=== PATIENT | female | born 1975 | race Hispanic/Latino ===

== ENCOUNTER 2020-07-12 11:24 | Emergency (ER) | payer MEDICARE, MEDICAID ==
[~2020-07-12] VITALS: Ht 172.7 cm; Wt 131.5 kg
[~2020-07-12 11:24] MED LIST: AMLO5TAB10 PO; ARIP2TAB3 PO; CELE200C PO; CHLO25TA PO; CLOP75TA PO; ESCI20TA PO; POT1TABL2 PO; TRAZ-163 PO
[2020-07-12 12:01] VITALS: BP 146/88
--- NOTE | 2020-07-12 12:35 | ER.PDOC ---
General Chief Complaint: Requesting Medical Care Stated Complaint: SOB Time seen by MD: 12:33 Source: patient Exam Limitations: no limitations History of Present Illness Initial Comments SOB for 1 Month, no fever, cough or chest pain. No exposure to a person positive for COVID-19. She drove a friesn to the ED and decided to get checked. She continues to smoke. Severity: mild Prior Episodes/Possible Cause: no prior episodes Associated Symptoms: denies symptoms Allergies: Coded Allergies: No Known Allergies (Unverified , 09/10/13) Home Meds Reported Medications Clopidogrel Bisulfate (CLOPIDOGREL) 75 Mg Tablet, 75 MG PO DAILY, TABLET 05/07/14 Trazodone Hcl (TRAZODONE HCL) 50 Mg Tablet, 50 MG PO HS, TABLET 05/07/14 Chlorthalidone (CHLORTHALIDONE) 25 Mg Tablet, 25 MG PO DAILY, TABLET 05/07/14 Amlodipine Besylate (AMLODIPINE BESYLATE) 5 Mg Tablet, 5 MG PO BID, TABLET 05/07/14 Celecoxib (CELEBREX) 200 Mg Capsule, 200 MG PO DAILY, CAPSULE 05/07/14 Escitalopram Oxalate (ESCITALOPRAM OXALATE) 20 Mg Tablet, 20 MG PO DAILY, #1 TABLET 05/07/14 Aripiprazole (ABILIFY) 2 Mg Tablet, 2 MG PO HS, TABLET 05/07/14 Pot Chloride/Kush Phos/Mag (MEDI-LYTE TABLET) 1 Each Tablet, 1 EACH PO BID, TABLET 05/07/14 Past Medical History Medical History: CVA/TIA/stroke, hypertension Surgical History: other Social History Alcohol Use: none Drug Use: none Review of Systems Constitutional: no symptoms reported EENTM: no symptoms reported Respiratory: see HPI Cardiovascular: no symptoms reported Gastrointestinal: no symptoms reported Genitourinary: no symptoms reported All Other Systems: Reviewed and Negative Physical Exam General Appearance: No Apparent Distress, WD/WN, Anxious, Obese Neck: Non-Tender, Full Range of Motion, Supple, Normal Inspection Respiratory: chest non-tender, lungs clear, normal breath sounds, no respiratory distress, no accessory muscle use Cardiovascular: Normal Peripheral Pulses, Regular Rate, Rhythm, No Edema, No Gallop, No JVD, No Murmur Gastrointestinal: Normal Bowel Sounds, No Organomegaly, No Pulsatile Mass, Non Tender, Soft Extremities: Normal Range of Motion, Non-Tender, Normal Inspection, No Pedal Edema, No Calf Tenderness, Normal Capillary Refill 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, No Motor/Sensory Deficits, Alert, Normal Mood/Affect, Oriented x 3 Skin: Normal Color, Warm/Dry Results/Orders Results/Orders Orders - BRANDT ROBLERO MD Cbc With Auto Diff (07/12/20 12:31) Comprehensive Metabolic Panel (07/12/20 12:31) Creatine Kinase (07/12/20 12:31) Creatine Kinase Mb (07/12/20 12:31) Troponin I (07/12/20 12:31) Probnp B-Type Job Lithographer (07/12/20 12:31) Xr Chest 1v (07/12/20 12:31) Ekg-Routine (07/12/20 12:31) Vital Signs Date Time Temp Pulse Resp B/P (MAP) Pulse Ox O2 Delivery O2 Flow Rate FiO2 07/12/20 12:52 88 18 163/90 (114) 98 07/12/20 12:01 98.3 94 18 07/12/20 12:01 98.3 94 18 07/12/20 12:01 98.3 94 18 Laboratory Tests Test 07/12/20 12:42 White Blood Count 7.3 10^3/uL (4.5-11.0) Red Blood Count 5.27 10^6/uL (4.00-5.20) H Hemoglobin 16.6 g/dL (12.0-15.0) H Hematocrit 50.0 % (36.0-46.0) H Mean Corpuscular Volume 94.9 fL (78-100) Mean Corpuscular Hemoglobin 31.5 pg (26-34) Mean Corpuscular Hemoglobin Concent 33.2 g/dL (33-36.5) Red Cell Distribution Width 12.7 % (11.5-14.5) Platelet Count 212 10^3/uL (150-400) Mean Platelet Volume 9.7 fL (7.8-11.0) Neutrophils (%) (Auto) 67.3 % (41.0-85.0) Lymphocytes (%) (Auto) 22.5 % (24.0-44.0) L Monocytes (%) (Auto) 6.9 % (5.0-12.0) Neutrophils # (Auto) 4.9 10^3/uL (1.8-7.7) Lymphocytes # (Auto) 1.63 10^3/uL1 (1.0-4.8) Monocytes # (Auto) 0.5 10^3/uL (0.3-0.8) Absolute Immature Granulocyte (auto 0.03 10^3 u/L (0-2) Absolute Eosinophils (auto) 0.2 10^3/uL (0.0-0.2) Immature Granulocytes % 0.40 % (0.00-0.50) Eosinophils % 2.8 % (0.0-5.0) Basophils % 0.1 % (0.0-0.2) Basophils # 0.0 10^3/uL (0.0-0.1) Sodium Level 138 mmol/L (132-145) Potassium Level 4.0 mmol/L (3.6-5.2) Chloride Level 103.0 mmol/L (96-109) Carbon Dioxide Level 26.0 mmol/L (20.0-32) Anion Gap 13.0 Blood Urea Nitrogen 11 mg/dL (7-18) Creatinine 0.88 mg/dL (0.59-1.40) Estimated GFR () 84.1 (>/=60) Est GFR (CKD-EPI)(Non-Afr Uruguayan) 69.5 (>/=60) BUN/Creatinine Ratio 12.0 Glucose Level 170 mg/dL (70-110) H Calcium Level 8.8 mg/dL (8.4-10.5) Total Bilirubin 0.3 mg/dL (0.2-1.0) Aspartate Amino Transferase (AST) 34 U/L (0-35) Alanine Aminotransferase (ALT) 53 U/L (12-78) Alkaline Phosphatase 77 U/L (50-136) Total Creatine Kinase 53 U/L (26-192) Creatine Kinase MB < 0.5 ng/mL (0.5-3.6) L Troponin I < 0.02 ng/mL (0.00-0.05) Pro-B-Type Natriuretic Peptide 12 pg/mL (0-125) Total Protein 8.2 g/dL (6.4-8.2) Albumin 3.6 g/dL (3.4-5.0) Globulin 4.6 EKG/XRAY/CT/US EKG: NSR XRAY: chest (No active disease) Departure Time of Disposition: 13:23 Disposition: 01 HOME, SELF-CARE Impression: Primary Impression: Shortness of breath Additional Impression: Anxiety Condition: Stable Referrals: ARMAND GREENE (PCP) PRIMARY CARE PROVIDER Additional Instructions: F/U with your PCP in 1-2 days Return to ED if worsening symptoms or concerns Duration or Time Spent with Pa: 45 min Problem Qualifiers BRANDT ROBLERO MD Jul 12, 2020 12:35
--- NOTE | 2020-07-12 12:40 | PCM.EKG ---
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
[2020-07-12 12:49] LABS: BASOPHIL % 0.1 % (0.0-0.2); EOSINOPHIL # 0.2 10^3/uL (0.0-0.2); EOSINOPHIL % 2.8 % (0.0-5.0); LYMPHOCYTES # 1.63 10^3/uL1 (1.0-4.8); LYMPHOCYTES % 22.5 % (24.0-44.0); MEAN CORP HGB 31.5 pg (26-34); MONOCYTES # 0.5 10^3/uL (0.3-0.8); MONOCYTES % 6.9 % (5.0-12.0); NEUTROPHIL # 4.9 10^3/uL (1.8-7.7); NEUTROPHILS % 67.3 % (41.0-85.0); PLATELET COUNT 212 10^3/uL (150-400); RED CELL DISTRIBUTION WIDTH 12.7 % (11.5-14.5)
[2020-07-12 12:52] VITALS: BP 163/90
--- NOTE | 2020-07-12 12:55 | DIREP ---
PROCEDURE:CHEST 1 VIEW COMPARISON:None. INDICATIONS:Shortness of breath FINDINGS: LUNGS/PLEURA:No significant pulmonary parenchymal abnormalities. No effusions. VASCULATURE:Normal. Unremarkable pulmonary vasculature. CARDIAC:Normal. No cardiac silhouette abnormality or cardiomegaly. MEDIASTINUM:Normal. No visible mass or adenopathy. BONES:Mild degenerative change. OTHER:Negative. CONCLUSION:No acute pulmonary process. Dictated by: Michael Holt M.D. on 07/12/2020 at 12:50 PM
[2020-07-12 13:16] LABS: ALANINE AMINOTRANSFERASE(ML) 53 U/L (12-78); ALKALINE PHOSPHATASE 77 U/L (50-136); ASPARTATE AMINO TRANSFERASE 34 U/L (0-35); CALCIUM 8.8 mg/dL (8.4-10.5); GLUCOSE 170 mg/dL (70-110)
== END 2020-07-12 13:35 | disposition home or self-care (01) ==
LOC: ER 11:34
DX: R06.02 Shortness of breath (principal); F41.9 Anxiety disorder, unspecified; I10 Essential (primary) hypertension; Z79.1 Long term (current) use of non-steroidal anti-inflammatories (NSAID); Z79.899 Other long term (current) drug therapy; Z86.73 Personal history of transient ischemic attack (TIA), and cerebral infarction without residual deficits
CPT/HCPCS: 36415; 71045; 80053; 82550; 82553; 83880; 84484; 85025; 93005; 99285

== ENCOUNTER → 2020-11-15 | Outpatient (CLI) | payer MEDICARE, MEDICAID ==
[~2020-11-15] MED LIST changes: +AMLO-169 PO; -AMLO5TAB10 PO
--- NOTE | 2020-11-15 20:52 | PCM.ECHO ---
APPROVED REPORT EXAM: Comprehensive 2D, Doppler, and color-flow Echocardiogram. Patient Location: OUT-PATIENT Indications Dyspnea ALLEN 2D Dimensions LVOT Diameter 2.60 (1.8-2.4cm) LVEF(%) 56.85 (>50%) M-Mode Dimensions Left Atrium(MM) 4.55 (2.5-4.0cm) IVSd 1.50 (0.7-1.1cm) Aortic Root 3.05 (2.2-3.7cm) LVDd 8.35 (4.0-5.6cm) Aortic Cusp Exc 1.80 (1.5-2.0cm) PWd 1.10 (0.7-1.1cm) MV EPSS 2.87 (<0.5cm) IVSs 2.35 cm FS (%) 18.05 % LVDs 6.80 (2.0-3.8cm) ESV(Teich) 242.97 ml PWs 1.80 cm LVEF(%) 36.03 (>50%) Volumes Biplane 2D LV Volumes Biplane 2D LA Volumes LVEDv A4C 145.90 mL LA ESV Index LVESv A4C 62.96 mL Aortic Valve AoV Peak Josh. 1.50 m/s AoV VTI 26.45 cm AO Peak GR. 9.40 mmHg AO Mean GR. 5.55 mmHg LVOT VTI 16.60 cm LVOT Peak Josh. 0.77 m/s BRENDA(VTI)/BSA 3.33 cm2/m2 BRENDA (VTI) 3.33 cm2 Mitral Valve MV E Velocity 0.80m/s MR Peak Gr. 12.45mmHg MV A Velocity 0.75m/s TDI Lateral E' P. V 0.09m/s Medial E' P. V 0.07m/s Pulmonary Valve PV Peak Velocity 0.75m/s PV Peak Grad. 2.25mmHg RVOT VTI 16.92cm Tricuspid Valve TR P. Velocity 2.50m/s RAP ESTIMATE 10.00mmHg TR Peak Gr. 25.63mmHg RVSP 35.63mmHg LEFT VENTRICLE The left ventricle is normal size. The left ventricular systolic function is normal. The left ventricular ejection fraction is within the normal range. There is normal left ventricular wall thickness. There is normal LV segmental wall motion. There is no ventricular septal defect visualized. No left ventricle thrombus noted on this study. LVEF is 55%. RIGHT VENTRICLE The right ventricle is normal size. The right ventricular systolic function is normal. There is normal right ventricular wall thickness. ATRIA The left atrium size is normal. The right atrium size is normal. The interatrial septum is intact with no evidence for an atrial septal defect. AORTIC VALVE The aortic valve is normal in structure. There is no aortic valvular stenosis. No aortic regurgitation is present. MITRAL VALVE The mitral valve is normal in structure. There is no mitral valve stenosis. Mild to moderate mitral regurgitation. There is no evidence of mitral valve vegetations. TRICUSPID VALVE Tricuspid valve is not well visualized. There is no tricuspid valve stenosis. Mild tricuspid regurgitation. PULMONIC VALVE Pulmonic valve is not well visualized. There is no pulmonic valvular stenosis. There is no pulmonic valvular regurgitation. GREAT VESSELS The aortic root is normal in size. Pulmonary artery is not well visualized. Aortic arch is not well visualized. IVC is not well visualized. PERICARDIUM There is no pericardial effusion. There is no pleural effusion. Other Information Study Quality: Fair <Conclusion> The left ventricular systolic function is normal. LVEF is 55%. Mild to moderate mitral regurgitation. Mild tricuspid regurgitation. Electronically signed by : LIZANDRO ZHENG. 11/15/2020 20:51:39
== END | disposition home or self-care (01) ==
LOC: RT 16:03
PROVIDERS: ATTEND Physician Assistant
DX: I08.1 Rheumatic disorders of both mitral and tricuspid valves (principal); R06.00 Dyspnea, unspecified
CPT/HCPCS: 93306; 94010

== ENCOUNTER 2022-09-14 13:27 | Inpatient (IN) | payer OTHER ==
[~2022-09-14] VITALS: Ht 170.2 cm; Wt 129.7 kg
[~2022-09-14 13:27] MED LIST changes: -ESCI20TA PO; +ESCI20TA8 PO
[2022-09-14 13:29] VITALS: BP 129/78
--- NOTE | 2022-09-14 13:29 | NUR ---
ARRIVAL PATIENT ARRIVED TO ED5 [facility], C/O WEAKNESS AND ELEVATED BLOOD SUGAR FOR THE PAST 3 DAYS, DOES HAVE A HISTORY OF TREMORS AND THE TREMORS SEEM TO BE WORSE, CALLED [facility] TO BRING TO THE ED, EMS INITIATED A 20G TO THE LEFT HAND INFUSING NORMAL SALINE, ASSISTED PATIENT TO ED5 [place], VITAL SIGNS TAKEN AND DOCTOR NOTIFIED OF PATIENT'S ARRIVAL.
--- NOTE | 2022-09-14 13:31 | ER.PDOC ---
General Chief Complaint: Requesting Medical Care Stated Complaint: HIGH BLOOD SUGAR TRAVEL OUT OF US: No Time seen by MD: 13:30 Source: patient Exam Limitations: no limitations History of Present Illness Initial Comments 47 yo F indicates she has been feeling unwell for the past week or so. Her blood glucose monitor had been reading 'high' at home - FSBS from EMS who brought her here is 570~ on arrival - and had her machine checked by her pharmacy, who verified that it was accurate. Denies fever, chills, cough, sore throat, or dysuria. There is a new medication - Ingrezza - which she had been taking for chronic tremors for the past ~2 weeks or so. Timing/Duration: 1 week Associated Symptoms: malaise Allergies: Coded Allergies: No Known Allergies (Unverified , 09/10/13) Home Meds Reported Medications Propranolol Hcl (PROPRANOLOL HCL) 40 Mg Tablet, 1 TAB PO DAILY24, #60 TAB 5 Refills 09/14/22 Metformin Hcl (METFORMIN HCL) 500 Mg Tablet, 1 TAB PO DAILY24, #60 TAB 3 Refills 09/14/22 Lisinopril (LISINOPRIL) 5 Mg Tablet, 1 TAB PO DAILY, #30 TAB 5 Refills 09/14/22 Levothyroxine Sodium (LEVOTHYROXINE SODIUM) 100 Mcg Tablet, 1 TAB PO DAILY, #30 TAB 5 Refills 09/14/22 Benztropine Mesylate (BENZTROPINE MESYLATE) 1 Mg Tablet, 1 TAB PO TID, #60 TAB 09/14/22 Atorvastatin 40MG (LIPITOR 40MG) 40 Mg Tablet, 1 TAB PO HS, #90 TAB 1 Refill 09/14/22 Aspirin (ASPIRIN) 325 Mg Tablet, 1 TAB PO DAILY, #30 TAB 5 Refills 09/14/22 Valbenazine Tosylate (Ingrezza) 80 Mg Capsule, 1 CAP PO DAILY24 for 30 Days, #30 CAP 0 Refills 09/14/22 Chlorthalidone (CHLORTHALIDONE) 25 Mg Tablet, 25 MG PO DAILY, TABLET 05/07/14 Amlodipine Besylate (AMLODIPINE BESYLATE) 5 Mg Tablet, 5 MG PO BID, TABLET 05/07/14 Escitalopram Oxalate (ESCITALOPRAM OXALATE) 20 Mg Tablet, 20 MG PO DAILY, #1 TABLET 05/07/14 Discontinued Reported Medications Clopidogrel Bisulfate (CLOPIDOGREL) 75 Mg Tablet, 75 MG PO DAILY, TABLET 05/07/14 Trazodone Hcl (TRAZODONE HCL) 50 Mg Tablet, 50 MG PO HS, TABLET 05/07/14 Celecoxib (CELEBREX) 200 Mg Capsule, 200 MG PO DAILY, CAPSULE 05/07/14 Aripiprazole (ABILIFY) 2 Mg Tablet, 2 MG PO HS, TABLET 05/07/14 Pot Chloride/Kush Phos/Mag (MEDI-LYTE TABLET) 1 Each Tablet, 1 EACH PO BID, TABLET 05/07/14 Past Medical History Medical History: CVA/TIA/stroke, diabetes, hypertension Surgical History: other (has mirena) Family History Significant Family History: no pertinent family hx Social History Smoking: non-smoker Drug Use: none Reviewed Nursing Reviewed: Vital Signs, Abn. Noted, Nursing Assessment Review of Systems All Other Systems: Reviewed and Negative Physical Exam General Appearance: No Apparent Distress Neck: Non-Tender, Full Range of Motion Respiratory: chest non-tender, lungs clear CVS: reg rate & rhythm Gastrointestinal: Normal Bowel Sounds, Non Tender (limited somewhat by body habitus) Back: Normal Inspection Extremities: Normal Range of Motion 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: No Motor/Sensory Deficits Skin: Normal Color Results/Orders Results/Orders Orders - MIRNA KAYE MD Strep Screen (09/14/22 13:28) Influenza A&B (09/14/22 13:28) Covid19 Antigen [place] Deborah (09/14/22 13:28) Urinalysis (09/14/22 13:28) Cbc With Auto Diff (09/14/22 13:28) Comprehensive Metabolic Panel (09/14/22 13:28) Insulin Regular, Human (Humulin R) (09/14/22 13:44) Insulin Regular, Human (Humulin R) (09/14/22 13:50) 0.9 % Sodium Chloride (Ns 1000ml) (09/14/22 13:50) Admit Orders (09/14/22 14:19) Ceftriaxone Sodium (Rocephin) (09/14/22 14:22) Vital Signs Date Time Temp Pulse Resp B/P (MAP) Pulse Ox O2 Delivery O2 Flow Rate FiO2 09/14/22 13:29 98.3 74 20 129/78 (95) 96 Room Air* 0 21 09/14/22 13:29 98.3 74 20 09/14/22 13:29 98.3 74 20 96 Administered Medications Medications (Trade) Dose Ordered Sig/Nisreen Route PRN Reason Start Time Stop Time Status Last Admin Dose Admin Insulin Human Regular (Humulin R) 10 unit STAT STAT IV 09/14/22 13:44 09/14/22 13:46 DC 09/14/22 13:54 10 UNIT Sodium Chloride 1,000 ml @ 0 mls/hr Q0M STAT IV 09/14/22 13:50 09/14/22 13:51 UNV 09/14/22 14:07 1,200 MLS/HR Laboratory Tests Test 09/14/22 13:35 09/14/22 13:40 Urine Collection Type RANDOM Urine Color YELLOW Urine Appearance CLEAR Urine Bilirubin NEGATIVE (NEGATIVE) Urine Ketones NEGATIVE (NEGATIVE) Urine Specific [place] 1.020 (1.005-1.030) Urine pH 7.0 (4.5-8.0) Urine Protein NEGATIVE (NEGATIVE) Urine Urobilinogen 1.0 E.U./dL (0.2) Urine Nitrate NEGATIVE (NEGATIVE) Urine Leukocyte Esterase NEGATIVE (NEGATIVE) Urine Glucose (Auto)(UA) 500 mg/dL (NEGATIVE) H Urine Blood TRACE-INTACT (NEGATIVE) H White Blood Count 9.0 10^3/uL (4.5-11.0) Red Blood Count 5.13 10^6/uL (4.00-5.20) Hemoglobin 15.1 g/dL (12.0-15.0) H Hematocrit 46.7 % (36.0-46.0) H Mean Corpuscular Volume 91.0 fL (78-100) Mean Corpuscular Hemoglobin 29.4 pg (26-34) Mean Corpuscular Hemoglobin Concent 32.3 g/dL (33-36.5) L Red Cell Distribution Width 13.0 % (11.5-14.5) Platelet Count 194 10^3/uL (150-400) Mean Platelet Volume 10.7 fL (7.8-11.0) Neutrophils (%) (Auto) 68.5 % (41.0-85.0) Lymphocytes (%) (Auto) 22.8 % (24.0-44.0) L Monocytes (%) (Auto) 5.5 % (5.0-12.0) Neutrophils # (Auto) 6.2 10^3/uL (1.8-7.7) Lymphocytes # (Auto) 2.05 10^3/uL1 (1.0-4.8) Monocytes # (Auto) 0.5 10^3/uL (0.3-0.8) Absolute Immature Granulocyte (auto 0.02 10^3 u/L (0-2) Absolute Eosinophils (auto) 0.3 10^3/uL (0.0-0.2) H Immature Granulocytes % 0.20 % (0.00-0.50) Eosinophils % 2.8 % (0.0-5.0) Basophils % 0.2 % (0.0-0.2) Basophils # 0.0 10^3/uL (0.0-0.1) Sodium Level 134 mmol/L (132-145) Potassium Level 4.0 mmol/L (3.6-5.2) Chloride Level 98.0 mmol/L (96-109) Carbon Dioxide Level 31.4 mmol/L (20.0-32) Anion Gap 8.6 Blood Urea Nitrogen 14 mg/dL (7-18) Creatinine 1.02 mg/dL (0.59-1.40) Estimated GFR () 70.3 (>/=60) Est GFR (CKD-EPI)(Non-Afr Luxembourger) 58.1 (>/=60) BUN/Creatinine Ratio 13.0 Glucose Level 614 mg/dL (70-110) *H Calcium Level 9.0 mg/dL (8.4-10.5) Total Bilirubin 0.5 mg/dL (0.2-1.0) Aspartate Amino Transferase (AST) 35 U/L (0-35) Alanine Aminotransferase (ALT) 40 U/L (12-78) Alkaline Phosphatase 137 U/L (50-136) H Total Protein 7.1 g/dL (6.4-8.2) Albumin 3.3 g/dL (3.4-5.0) L Globulin 3.8 Albumin/Globulin Ratio 0.868 Influenza Type A Antigen NEGATIVE (NEG) Influenza Type B Antigen NEGATIVE (NEG) SARS-CoV-2 Antigen (Rapid) NEGATIVE (NEGATIVE) Group A Streptococcus Screen POSITIVE (NEGATIVE) A Progress Progress strep positive. Glucose is quite impressive. I have conferred with Dr. Klein; we will give ceftriaxone and admit. ER DEPART Departure Time of Disposition: 14:23 Disposition: 02 SHORT TERM HOSPITAL Impression: Primary Impression: Pharyngitis due to Streptococcus pyogenes Additional Impressions: Severe hyperglycemia due to diabetes mellitus Uncontrolled diabetes mellitus Condition: Stable Referrals: ARMAND GREENE (PCP) PRIMARY CARE PROVIDER Duration or Time Spent with Pa: 15 min Problem Qualifiers MIRNA KAYE MD Sep 14, 2022 13:31
[2022-09-14] MEDS ORDERED: ATOR40TA PO (13:39)
[2022-09-14] MEDS ORDERED: LISI5TAB18 PO (13:39)
[2022-09-14] MEDS ORDERED: PROP40TA PO (13:39)
[2022-09-14] MEDS ORDERED: ASPI325T14 PO (13:39)
[2022-09-14] MEDS ORDERED: VALB80CA PO (13:39)
[2022-09-14] MEDS ORDERED: METF500T17 PO (13:39)
[2022-09-14] MEDS ORDERED: BENZ1TAB5 PO (13:39)
[2022-09-14] MEDS ORDERED: LEVO100T5 PO (13:39)
--- NOTE | 2022-09-14 13:39 | NUR ---
EMS GLUCOSE EMS TOOK GLUCOSE JUST SPECTACLE TRUER WAS 574.
[2022-09-14] MEDS ORDERED: HUMULIN R IV STA (13:44)
[2022-09-14 13:47] LABS: BASOPHIL % 0.2 % (0.0-0.2); EOSINOPHIL # 0.3 10^3/uL (0.0-0.2); EOSINOPHIL % 2.8 % (0.0-5.0); LYMPHOCYTES # 2.05 10^3/uL1 (1.0-4.8); LYMPHOCYTES % 22.8 % (24.0-44.0); MEAN CORP HGB 29.4 pg (26-34); MONOCYTES # 0.5 10^3/uL (0.3-0.8); MONOCYTES % 5.5 % (5.0-12.0); NEUTROPHIL # 6.2 10^3/uL (1.8-7.7); NEUTROPHILS % 68.5 % (41.0-85.0); PLATELET COUNT 194 10^3/uL (150-400)
[2022-09-14] MEDS ORDERED: HUMULIN R ONE (13:50)
[2022-09-14] MEDS ORDERED: NS 1000ML 1,000 ML IV STA (13:50)
[2022-09-14] MEDS ORDERED: NS 1000ML 1,000 ML STA (13:50)
[2022-09-14 13:52] LABS: BILIRUBIN,URINE NEGATIVE (NEGATIVE)
--- NOTE | 2022-09-14 13:55 | NUR ---
CRITICAL LAB STREP POSITIVE, DOCTOR NOTIFIED.
[2022-09-14 14:08] LABS: CARBON DIOXIDE 31.4 mmol/L (20.0-32)
--- NOTE | 2022-09-14 14:11 | NUR ---
CRITICAL LAB NOTIFIED KAYE OF GLUCOSE 614
--- NOTE | 2022-09-14 14:16 | NUR ---
HOSPITALIST DR KAYE ON THE PHONE WITH DR GLEASON
[2022-09-14] MEDS ORDERED: ROCEPHIN 2,000 MG in NS 100ML 100 ML IV STA (14:22)
[2022-09-14] MEDS ORDERED: NS 100ML 100 ML IV ONE (14:26)
[2022-09-14] MEDS ORDERED: ROCEPHIN ONE (14:26)
--- NOTE | 2022-09-14 14:51 | NUR ---
ARRIVAL PATIENT ARRIVED ON MED-SURG AT THIS TIME TO ROOM #330. REPORT RECEIVED BY MOUNIKA CULVER. VITAL SIGNS TAKEN, ACCUCHECK TAKEN AT THIS TIME. CALL LIGHT IN REACH, BED IS LOW AND LOCKED.
[2022-09-14] MEDS ORDERED: ZOFRAN IV PRN (15:00)
[2022-09-14] MEDS ORDERED: DEXTROSE 50%-WATER SYRINGE IV PRN (15:00)
[2022-09-14] MEDS ORDERED: MILK OF MAGNESIA PO PRN (15:00)
--- NOTE | 2022-09-14 15:02 | PCM.HP ---
HISTORY AND PHYSICAL Date of Arrival on Unit: Sep 14, 2022 Chief Complaint fatigue HPI 47 year old female presented to the ED today via EMS for fatigue and malaise. She has hx of DMII (on metformin and taking as prescribed) and reported her glucometer has been reading "HIGH" the past few days. In the ED she was found to have a glucose of 614. Sodium was 134, potassium 4.0, gap of 8. She was given 10 units humalog and 2 L bags of IVF. Repeat glucose was taken after I accepted the pt and it was 371. Positive glucose and few bacteria in urine. no leukocytosis but GAS was positive and pt noted a sore throat today. No fever or chills, GI sx, dyspnea, chest pain, palpitations, dysuria, abd pain, rash, numbness, weakness, headaches, ear pain, sinus pressure. She was given Rocephin 2g in the ED. Taking Metformin 1000mg, lisinopril 5mg, lipitor 40mg, propranolol 40mg, full ASA, amlodipine 5mg BID, ingrezza 80mg Past History Past Medical History Medical History: CVA/TIA/stroke, diabetes, hypertension Surgical History: other (has mirena) Family History Significant Family History: no pertinent family hx Social History Smoking: non-smoker Drug Use: none Allergies Allergies Coded Allergies No Known Allergies (Neqriwueak83/12/13) Scheduled Amlodipine Besylate (Amlodipine Besylate), 5 MG PO BID, (Reported) Aspirin (Aspirin), 1 TAB PO DAILY, (Reported) Atorvastatin 40MG (Lipitor 40MG), 1 TAB PO HS, (Reported) Benztropine Mesylate (Benztropine Mesylate), 1 TAB PO TID, (Reported) Chlorthalidone (Chlorthalidone), 25 MG PO DAILY, (Reported) Escitalopram Oxalate (Escitalopram Oxalate), 20 MG PO DAILY, (Reported) Levothyroxine Sodium (Levothyroxine Sodium), 1 TAB PO DAILY, (Reported) Lisinopril (Lisinopril), 1 TAB PO DAILY, (Reported) Metformin Hcl (Metformin Hcl), 1 TAB PO DAILY24, (Reported) Propranolol Hcl (Propranolol Hcl), 1 TAB PO DAILY24, (Reported) Valbenazine Tosylate (Ingrezza), 1 CAP PO DAILY24, (Reported) Discontinued Medications Aripiprazole (Abilify), 2 MG PO HS, (Reported) Discontinued Reason: No Longer Taking Celecoxib (Celebrex), 200 MG PO DAILY, (Reported) Discontinued Reason: No Longer Taking Clopidogrel Bisulfate (Clopidogrel), 75 MG PO DAILY, (Reported) Discontinued Reason: No Longer Taking Pot Chloride/Kush Phos/Mag (Medi-Lyte Tablet), 1 EACH PO BID, (Reported) Discontinued Reason: No Longer Taking Trazodone Hcl (Trazodone Hcl), 50 MG PO HS, (Reported) Discontinued Reason: No Longer Taking Other Pt history Problems Medical Problems: (1) Anxiety Status: Acute ICD Codes: F41.9 - Anxiety disorder, unspecified SNOMED: 49490280 (2) Shortness of breath Status: Acute ICD Codes: R06.02 - Shortness of breath SNOMED: 208103917 ROS 12 point ROS negative other than stated in HPI VITALS Vital Signs Date Time Temp Pulse Resp B/P (MAP) Pulse Ox O2 Delivery O2 Flow Rate FiO2 09/14/22 13:29 98.3 74 20 129/78 (95) 96 Room Air* 0 21 EXAM General Appearance: No Apparent Distress Neck: Non-Tender, Full Range of Motion Respiratory: chest non-tender, lungs clear CVS: reg rate & rhythm Gastrointestinal: Normal Bowel Sounds, Non Tender (limited somewhat by body habitus) Back: Normal Inspection Extremities: Normal Range of Motion 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: No Motor/Sensory Deficits Skin: Normal Color LAB/ROSANNA/BBK/PATH Laboratory Tests Test 09/14/22 13:35 09/14/22 13:40 09/14/22 14:39 09/14/22 14:54 Urine Collection Type RANDOM Urine Color YELLOW Urine Appearance CLEAR Urine Bilirubin NEGATIVE (NEGATIVE) Urine Ketones NEGATIVE (NEGATIVE) Urine Specific [place] 1.020 (1.005-1.030) Urine pH 7.0 (4.5-8.0) Urine Protein NEGATIVE (NEGATIVE) Urine Urobilinogen 1.0 E.U./dL (0.2) Urine Nitrate NEGATIVE (NEGATIVE) Urine Leukocyte Esterase NEGATIVE (NEGATIVE) Urine Glucose (Auto)(UA) 500 mg/dL (NEGATIVE) Urine Blood TRACE-INTACT (NEGATIVE) Urine RBC 0-2 RBC/HPF (NONE SEEN) Urine WBC 0-2 WBC/HPF (0-2) Urine Squamous Epithelial Cells FEW (<=FEW) Urine Bacteria FEW (NONE SEEN) White Blood Count 9.0 10^3/uL (4.5-11.0) Red Blood Count 5.13 10^6/uL (4.00-5.20) Hemoglobin 15.1 g/dL (12.0-15.0) Hematocrit 46.7 % (36.0-46.0) Mean Corpuscular Volume 91.0 fL (78-100) Mean Corpuscular Hemoglobin 29.4 pg (26-34) Mean Corpuscular Hemoglobin Concent 32.3 g/dL (33-36.5) Red Cell Distribution Width 13.0 % (11.5-14.5) Platelet Count 194 10^3/uL (150-400) Mean Platelet Volume 10.7 fL (7.8-11.0) Neutrophils (%) (Auto) 68.5 % (41.0-85.0) Lymphocytes (%) (Auto) 22.8 % (24.0-44.0) Monocytes (%) (Auto) 5.5 % (5.0-12.0) Neutrophils # (Auto) 6.2 10^3/uL (1.8-7.7) Lymphocytes # (Auto) 2.05 10^3/uL1 (1.0-4.8) Monocytes # (Auto) 0.5 10^3/uL (0.3-0.8) Absolute Immature Granulocyte (auto 0.02 10^3 u/L (0-2) Absolute Eosinophils (auto) 0.3 10^3/uL (0.0-0.2) Immature Granulocytes % 0.20 % (0.00-0.50) Eosinophils % 2.8 % (0.0-5.0) Basophils % 0.2 % (0.0-0.2) Basophils # 0.0 10^3/uL (0.0-0.1) Sodium Level 134 mmol/L (132-145) Potassium Level 4.0 mmol/L (3.6-5.2) Chloride Level 98.0 mmol/L (96-109) Carbon Dioxide Level 31.4 mmol/L (20.0-32) Anion Gap 8.6 Blood Urea Nitrogen 14 mg/dL (7-18) Creatinine 1.02 mg/dL (0.59-1.40) Estimated GFR () 70.3 (>/=60) Est GFR (CKD-EPI)(Non-Afr Malagasy) 58.1 (>/=60) BUN/Creatinine Ratio 13.0 Glucose Level 614 mg/dL (70-110) Calcium Level 9.0 mg/dL (8.4-10.5) Total Bilirubin 0.5 mg/dL (0.2-1.0) Aspartate Amino Transf (AST/SGOT) 35 U/L (0-35) Alanine Aminotransferase (ALT/SGPT) 40 U/L (12-78) Alkaline Phosphatase 137 U/L (50-136) Total Protein 7.1 g/dL (6.4-8.2) Albumin 3.3 g/dL (3.4-5.0) Globulin 3.8 Albumin/Globulin Ratio 0.868 Influenza Type A Antigen NEGATIVE (NEG) Influenza Type B Antigen NEGATIVE (NEG) SARS-CoV-2 Antigen (Rapid) NEGATIVE (NEGATIVE) Group A Streptococcus Screen POSITIVE (NEGATIVE) Bedside Glucose 371 (70 - 110) 390 (70 - 110) IMAGING none SUMMARY 47 year old female with DMII, HTN, CVA, hypothyroidism presented to the ED for malaise. She was found to have GAS pharyngitis and hyperglycemia with glucose 600. ASSESSMENT/PLAN Hyperglycemia - DMII on metformin, now - IVF and sliding scale. monitor glucose. A1c in morning HTN - amlodipine 5mg BID and propranolol 40mg as well as lisinopril 5mg. Hx of CVA - ASA, SCDs, Lovenox ppx, statin Depression - escitalopram and chlorthalidone Tremors - ?tardive dyskinesia - taking Ingrezza. GAS pharyngitis - rocephin given today, can switch to cephalexin or other oral abx tomorrow repeat BMP this evening cont IVF diabetic diet DVT and GI ppx antiemetics prn tylenol prn Rehydrate, monitor glucose and electrolytes. Likely be ready for discharge tomorrow. Has an establishment appointment with Dr Delvalle this week. MICHAEL GLEASON MD Sep 14, 2022 15:02
[2022-09-14] MEDS ORDERED: LACTATED RINGERS 1,000 ML ONE (15:29)
[2022-09-14 16:11] VITALS: BP 128/68
[2022-09-14] MEDS ORDERED: LOVENOX SQ SCH (16:30)
[2022-09-14] MEDS ORDERED: BENADRYL IV PRN (16:30)
[2022-09-14] MEDS: HUMULIN R SQ SCH ×2 (17:19→21:00)
[2022-09-14] MEDS: TYLENOL PO PRN (20:05)
[2022-09-14 20:06] VITALS: BP 151/77
[2022-09-14 20:38] LABS: CARBON DIOXIDE 25.6 mmol/L (20.0-32)
[2022-09-14] MEDS ORDERED: LIPITOR PO SCH (21:00)
[2022-09-14] MEDS: COGENTIN PO SCH (22:01)
[2022-09-15 00:36] VITALS: BP 135/78
[2022-09-15 04:00] VITALS: BP 149/84
[2022-09-15 05:11] LABS: BASOPHIL % 0.3 % (0.0-0.2); EOSINOPHIL # 0.3 10^3/uL (0.0-0.2); EOSINOPHIL % 4.4 % (0.0-5.0); LYMPHOCYTES % 32.3 % (24.0-44.0); MEAN CORP HGB 29.5 pg (26-34); MONOCYTES # 0.5 10^3/uL (0.3-0.8); MONOCYTES % 6.6 % (5.0-12.0); NEUTROPHIL # 4.4 10^3/uL (1.8-7.7); NEUTROPHILS % 56.4 % (41.0-85.0); PLATELET COUNT 190 10^3/uL (150-400); RED CELL DISTRIBUTION WIDTH 13.1 % (11.5-14.5)
[2022-09-15 05:20] LABS: CARBON DIOXIDE 29.7 mmol/L (20.0-32)
[2022-09-15] MEDS ORDERED: SYNTHROID PO SCH (06:30)
[2022-09-15] MEDS: TYLENOL PO PRN (07:02)
[2022-09-15 08:07] VITALS: BP 148/89
[2022-09-15] MEDS: COGENTIN PO SCH (08:20)
[2022-09-15] MEDS: HUMULIN R SQ SCH (08:23)
[2022-09-15] MEDS ORDERED: ZESTRIL PO SCH (09:00)
[2022-09-15] MEDS ORDERED: CHLORTHALIDONE PO SCH (09:00)
[2022-09-15] MEDS ORDERED: NORVASC PO SCH (09:00)
[2022-09-15] MEDS ORDERED: PROTONIX IV IV SCH (09:00)
[2022-09-15] MEDS ORDERED: INDERAL PO SCH (09:00)
[2022-09-15] MEDS ORDERED: CeleXA PO SCH (09:00)
[2022-09-15] MEDS ORDERED: ASPIRIN PO SCH (09:00)
[2022-09-15] MEDS ORDERED: GLIM4TAB PO (09:46)
[2022-09-15] MEDS ORDERED: METF500T17 PO (09:46)
--- NOTE | 2022-09-15 09:50 | PRM.DC ---
DISCHARGE SUMMARY Y Date of Admission: 09/14/2022 Date of Discharge:09/15/2022 FINAL DIAGNOSES: 1. Uncontrolled type 2 diabetes mellitus 2. Dehydration with malaise and fatigue 3. Hypertension 4. Hypothyroidism Please refer to the History and Physical to the point of my impression. HOSPITAL COURSE: 47-year-old female with uncontrolled type 2 diabetes mellitus who came in with a blood sugar that was very elevated and over 500. She was not in DKA and she was not in a hyperosmolar nonketotic state with no mental status changes. She was clinically dehydrated and was given insulin with IV fluids and her blood sugar started to come down. I educated her about a diabetic diet and since she is not on 1 and explained to her about carb counting and calories in her diet. Her blood sugars are improved at this time and she is not in an acidotic state and her renal function is normal. She is only taking metformin once a day and I explained to her that along with a proper diet and certain medications her blood sugars could be managed better down the road. I am increasing her metformin to twice a day and adding an oral sulfonylurea, Amaryl, at this time. She has an appointment to see Dr. Will one of our local breaker unit assembler to manage her diabetes down the road. Discharge instructions: 1. Stay on a 1500-calorie diet for now 2. Activity as tolerated 3. Perform Accu-Cheks before meals and at bedtime 4. Follow-up with Dr. Will as scheduled later this week ABRIL GOMEZ MD Sep 15, 2022 09:50
[2022-09-15 11:30] VITALS: BP 149/71
[2022-09-15 11:45] VITALS: BP 149/71
--- NOTE | 2022-09-15 11:45 | NUR ---
PT DISCHARGED VIA W/C ACCOMPANIED BY NURSING X1 TO PERSONAL VEHICLE WITH FAMILY
--- NOTE | 2022-09-15 13:00 | NUR ---
DISCHARGE PLAN -F/U APPT DR GLEASON - 09/18/22@2PM CM VISIT WITH PATIENT THIS AM ABOUT DISCHARGE PLANS, NEEDS AND GOALS. PATIENT CURRENTLY LIVES IN [place] WITH HER FIANCE, SON, AND DAUGHTER. PATIENT NO LONGER SEE'S DR GREENE IN [place]. PATIENT REPORTS THAT SHE IS SWITCHING TO [facility] AND PATIENT HAS A F/U SOMETIME NEXT WEEK. PATIENT SAYS THAT IT'S WRITTEN DOWN, BUT SHE FORGOT WHEN. PATIENT HAS [facility]HOME AND SOMETIMES USES. PATIENT EDUCATED ON SERVICES AVAILABLE. PATIENT ACTIVE AND STILL DRIVES AND DENIES NEED FOR ANY SERVICES OR DME. PATIENT SIGNS [facility] CHOICE LETTER OF SAME. CM CONTACTED [facility] AND PATIENT ACTUALLY HAS APPT SET UP WT DR GLEASON ON 09/18/22@2PM. CM NOTIFIED RODRIGO & ANGELICA@[facility] OF PATIENT'S DISCHARGE AND F/U APPT BY [facility] EMAIL.
== END 2022-09-15 11:45 | disposition home or self-care (01) | DRG 639 ==
LOC: EDBD 13:27 → ER 13:27 → MS 14:32
PROVIDERS: ADMIT Student in an Organized Health Care Education/Training Program; ATTEND Pediatrics
DX: E11.65 Type 2 diabetes mellitus with hyperglycemia (principal); I10 Essential (primary) hypertension; F32.A Depression, unspecified; G24.01 Drug induced subacute dyskinesia; J02.0 Streptococcal pharyngitis; E03.9 Hypothyroidism, unspecified; Z20.822 Contact with and (suspected) exposure to COVID-19; E86.0 Dehydration; F41.9 Anxiety disorder, unspecified; Z79.84 Long term (current) use of oral hypoglycemic drugs; Z79.899 Other long term (current) drug therapy; Z86.73 Personal history of transient ischemic attack (TIA), and cerebral infarction without residual deficits
CPT/HCPCS: 36415; 80048; 80053; 81001; 82948; 83036; 85025; 87086; 87426; 87804; 87880; 99285; C9113; G0378; J0696; J1650; J1815; J7030; J7120

== ENCOUNTER → 2022-09-22 | Outpatient (CLI) | payer OTHER ==
[~2022-09-22] MED LIST changes: +ASPI325T14 PO; +ATOR40TA PO; +BENZ1TAB5 PO; +GLIM4TAB PO; +LEVO100T5 PO; +LEXISCAN IV ONE; +LISI5TAB18 PO; +METF500T17 PO; +PROP40TA PO; +VALB80CA PO
--- NOTE | 2022-09-22 23:36 | STRESS ---
DATE OF SERVICE: 09/22/2022 DICTATOR NAME: LIZANDRO JOSEFeliz CARDIAC STRESS TEST INDICATION: Chest pain. FINDINGS: Baseline EKG shows sinus bradycardia with poor R-wave progression, likely normal variant. Stress EKG shows normal sinus rhythm, unchanged from baseline. Artifacts are noted during stress. At the end of recovery, EKG shows normal sinus rhythm, unchanged from baseline. Baseline heart rate is 54 beats per minute and armando to 62 beats per minute during stress. At the end of recovery, the heart rate was 79 beats per minute. Baseline blood pressure is 101/64 and remained the same during stress. At the end of recovery, the blood pressure was 159/68. Blood pressure and heart rate were appropriate for stress. There were no significant symptoms noted during stress. There were no arrhythmias noted during stress. EKG portion of stress test is negative for myocardial ischemia. Nuclear images were obtained with a rest dose of 9.9 mCi technetium-99 sestamibi, and a stress dose of 32.2 mCi technetium 99 sestamibi. Nuclear images reveal homogeneous tracer distribution across all wall segments with no evidence of myocardial ischemia or infarction. Left ventricular ejection fraction is 55%. EDV is 109 mL, ESV is 49 mL. The left ventricle is normal in size. Gated motion images show normal wall motion across all segments of the left ventricle. TID is 1.02. There is no evidence of diaphragmatic attenuation artifact. IMPRESSION: * Normal myocardial perfusion imaging with no evidence of myocardial ischemia or infarction. * Left ventricular ejection fraction of 55%. * This is a negative study. Jorge Luis PAEZ D.O. DR: BAILEE/SEBAS TID: [id number] RECEIPT: [id number]
== END | disposition home or self-care (01) ==
LOC: RAD 08:45
PROVIDERS: ATTEND Internal Medicine Interventional Cardiology
DX: I10 Essential (primary) hypertension (principal); R06.02 Shortness of breath; R07.9 Chest pain, unspecified
CPT/HCPCS: 78452; 93017; J2785; A9500

== ENCOUNTER → 2022-10-08 | Outpatient (CLI) | payer MEDICAID, MEDICARE, OTHER ==
[~2022-10-08] MED LIST changes: -LEXISCAN IV ONE
--- NOTE | 2022-10-09 03:20 | PRP ---
DATE OF PROCEDURE: 10/08/2022 DICTATOR NAME: LIZANDRO ZHENG DO VENOUS MAPPING ULTRASOUND INDICATION: Chronic venous insufficiency. RIGHT LOWER EXTREMITY: The right greater saphenous vein measures 7 mm in its maximum diameter. Significant reflux is noted in the right greater saphenous vein with maximum reflux of 6.1 seconds. The right small saphenous vein measures 4 mm in its maximum diameter. Significant reflux is noted in the right small saphenous vein with maximum reflux of 0.6 seconds. There is no evidence of deep venous thrombosis in the right lower extremity. LEFT LOWER EXTREMITY: The left greater saphenous vein measures 5 mm in its maximum diameter. Significant reflux is noted in the left greater saphenous vein with maximum reflux of 0.8 seconds. The left small saphenous vein measures 3 mm in its maximum diameter. There is no evidence of significant reflux in the left small saphenous vein. There is no evidence of DVT in the left lower extremity. IMPRESSION: * The right greater saphenous vein is normal sized, but displays pathological reflux. * The right small saphenous vein is normal sized, but displays pathological reflux. * The left greater saphenous vein is normal sized, but displays pathological reflux. * The left small saphenous vein is normal sized and does not show significant reflux. * There is no evidence of deep vein thrombosis in the bilateral lower extremities. RECOMMENDATIONS: Conservative measures including the use of compression stockings, leg elevation and exercise are recommended if clinically indicated. Jorge Luis PAEZ D.O. DR: FREDY TID: [id number] RECEIPT: [id number]
== END | disposition home or self-care (01) ==
LOC: RAD 14:43
PROVIDERS: ATTEND Nurse Practitioner Family
DX: I87.2 Venous insufficiency (chronic) (peripheral) (principal)
CPT/HCPCS: 93970

== ENCOUNTER 2022-10-09 10:57 | Emergency (ER) | payer MEDICARE, MEDICAID ==
[~2022-10-09] VITALS: Ht 170.2 cm; Wt 127.0 kg
[2022-10-09 10:59] VITALS: BP 127/63
--- NOTE | 2022-10-09 11:15 | ER.PDOC ---
General Chief Complaint: Dyspnea/Respdistress Stated Complaint: DYSPNEA TRAVEL OUT OF US: No Time seen by MD: 11:12 Source: patient Exam Limitations: no limitations History of Present Illness Initial Comments 47-year-old female comes here with acute onset of shortness of breath this morning. She is a heavy tobacco abuse review as she is in the process of being diagnosed now with congestive heart failure and COPD. The symptoms started at rest. No fever. Some dry cough. She does not take any diuretic. She is not taking any medication for COPD. She did not take anything medication for this at home. Symptoms are moderate to severe and progressive. Constant. Allergies: Coded Allergies: No Known Allergies (Unverified , 09/10/13) Home Meds Active Scripts Glimepiride (AMARYL) 4 Mg Tablet, 1 TAB PO BID, #60 TAB 3 Refills Prov:ABRIL GOMEZ MD 09/15/22 Metformin Hcl (METFORMIN HCL) 500 Mg Tablet, 1 TAB PO BID, #60 TAB 3 Refills Prov:ABRIL GOMEZ MD 09/15/22 Reported Medications Propranolol Hcl (PROPRANOLOL HCL) 40 Mg Tablet, 1 TAB PO DAILY24, #60 TAB 5 Refills 09/14/22 Lisinopril (LISINOPRIL) 5 Mg Tablet, 1 TAB PO DAILY, #30 TAB 5 Refills 09/14/22 Levothyroxine Sodium (LEVOTHYROXINE SODIUM) 100 Mcg Tablet, 1 TAB PO DAILY, #30 TAB 5 Refills 09/14/22 Benztropine Mesylate (BENZTROPINE MESYLATE) 1 Mg Tablet, 1 TAB PO TID, #60 TAB 09/14/22 Atorvastatin 40MG (LIPITOR 40MG) 40 Mg Tablet, 1 TAB PO HS, #90 TAB 1 Refill 09/14/22 Aspirin (ASPIRIN) 325 Mg Tablet, 1 TAB PO DAILY, #30 TAB 5 Refills 09/14/22 Valbenazine Tosylate (Ingrezza) 80 Mg Capsule, 1 CAP PO DAILY24 for 30 Days, #30 CAP 0 Refills 09/14/22 Chlorthalidone (CHLORTHALIDONE) 25 Mg Tablet, 25 MG PO DAILY, TABLET 05/07/14 Amlodipine Besylate (AMLODIPINE BESYLATE) 5 Mg Tablet, 5 MG PO BID, TABLET 05/07/14 Escitalopram Oxalate (ESCITALOPRAM OXALATE) 20 Mg Tablet, 20 MG PO DAILY, #1 TABLET 05/07/14 Past Medical History Medical History: CVA/TIA/stroke, diabetes, hypertension Surgical History: other LMP (females 10-50): N/A Not applicalbe Family History Significant Family History: no pertinent family hx Social History Smoking: quit less than 1 year Alcohol Use: none Drug Use: none Reviewed Nursing Reviewed: Vital Signs, Abn. Noted, Nursing Assessment Review of Systems Constitutional: denies no symptoms reported, denies see HPI, denies chills, denies diaphoresis, denies fever, denies malaise, denies weakness, denies other EENTM: denies no symptoms reported, denies see HPI, denies eye pain, denies blurred vision, denies tearing, denies double vision, denies ear pain, denies ear discharge, denies nose pain, denies nose congestion, denies throat pain, denies throat swelling, denies mouth pain, denies mouth swelling, denies other Respiratory: denies no symptoms reported, denies see HPI; cough; denies orthopnea; shortness of breath; denies stridor, denies wheezing, denies other Cardiovascular: denies no symptoms reported, denies see HPI, denies chest pain, denies edema, denies palpitations, denies syncope, denies other Gastrointestinal: denies no symptoms reported, denies see HPI, denies abdominal pain, denies constipation, denies diarrhea, denies nausea, denies vomiting, denies other Genitourinary: denies no symptoms reported, denies see HPI, denies discharge, denies dysuria, denies frequency, denies hematuria, denies pain, denies other Musculoskeletal: denies no symptoms reported, denies see HPI, denies back pain, denies gout, denies joint pain, denies joint swelling, denies muscle pain, denies muscle stiffness, denies neck pain, denies other Skin: denies no symptoms reported, denies see HPI, denies change in color, denies change in hair/nails, denies dryness, denies lesions, denies lumps, denies rash, denies other Psychiatric/Neurological: denies no symptoms reported, denies see HPI, denies anxiety, denies depressed, denies emotional problems, denies headache, denies numbness, denies paresthesia, denies pre-existing deficit, denies seizure, denies tingling, denies tremors, denies weakness, denies other Hematologic/Lymphatic: denies no symptoms reported, denies see HPI, denies anemia, denies blood clots, denies easy bleeding, denies easy bruising, denies swollen glands, denies other Immunological/Allergic: denies no symptoms reported, denies see HPI, denies food allergy, denies grass allergy, denies mold allergy, denies pollen allergy, denies HIV/AIDS, denies transplant All Other Systems: Reviewed and Negative Physical Exam General Appearance: Moderate Distress EENT: eyes nml inspection, nml ENT inspection, pharynx nml Neck: Non-Tender, Full Range of Motion, Supple, Normal Inspection Respiratory: chest non-tender, no accessory muscle use, decreased breath sounds CVS: reg rate & rhythm, no murmur, no gallop, pulses nml, nml capillary refill Gastrointestinal: Normal Bowel Sounds, No Organomegaly, No Pulsatile Mass, Non Tender, Soft Back: Normal Inspection, No CVA Tenderness Extremities: Normal Range of Motion, Normal Inspection, No Pedal Edema, No Calf Tenderness 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 (10/09/22 11:10) Ekg-Routine (10/09/22 11:10) Troponin I High Sensitivity (10/09/22 11:10) Albuterol Sulfate (Ventolin) (10/09/22 13:00) Vital Signs Date Time Temp Pulse Resp B/P (MAP) Pulse Ox O2 Delivery O2 Flow Rate FiO2 10/09/22 10:59 98.0 63 18 95 10/09/22 10:59 98.0 63 18 10/09/22 10:59 98.0 63 18 127/63 (84) 95 Room Air* 0 21 09/15/22 08:21 63 Laboratory Tests Test 10/09/22 11:25 White Blood Count 9.4 10^3/uL (4.5-11.0) Red Blood Count 5.00 10^6/uL (4.00-5.20) Hemoglobin 14.8 g/dL (12.0-15.0) Hematocrit 46.2 % (36.0-46.0) H Mean Corpuscular Volume 92.4 fL (78-100) Mean Corpuscular Hemoglobin 29.6 pg (26-34) Mean Corpuscular Hemoglobin Concent 32.0 g/dL (33-36.5) L Red Cell Distribution Width 12.8 % (11.5-14.5) Platelet Count 232 10^3/uL (150-400) Mean Platelet Volume 10.0 fL (7.8-11.0) Neutrophils (%) (Auto) 64.6 % (41.0-85.0) Lymphocytes (%) (Auto) 24.6 % (24.0-44.0) Monocytes (%) (Auto) 7.9 % (5.0-12.0) Neutrophils # (Auto) 6.1 10^3/uL (1.8-7.7) Lymphocytes # (Auto) 2.31 10^3/uL1 (1.0-4.8) Monocytes # (Auto) 0.7 10^3/uL (0.3-0.8) Absolute Immature Granulocyte (auto 0.02 10^3 u/L (0-2) Absolute Eosinophils (auto) 0.3 10^3/uL (0.0-0.2) H Immature Granulocytes % 0.20 % (0.00-0.50) Eosinophils % 2.8 % (0.0-5.0) Basophils % 0.1 % (0.0-0.2) Basophils # 0.0 10^3/uL (0.0-0.1) Prothrombin Time 11.0 SEC (9.1-11.5) Prothrombin Time INR (Non-Therap) 1.1 Activated Partial Thromboplast Time 26.7 SEC (22.5-33.1) D-Dimer 0.33 mg/L (0.19-0.49) Sodium Level 141 mmol/L (132-145) Potassium Level 3.0 mmol/L (3.6-5.2) L Chloride Level 103.0 mmol/L (96-109) Carbon Dioxide Level 32.9 mmol/L (20.0-32) H Anion Gap 8.1 Blood Urea Nitrogen 12 mg/dL (7-18) Creatinine 0.70 mg/dL (0.59-1.40) Estimated GFR () 108.5 (>/=60) Est GFR (CKD-EPI)(Non-Afr Polish) 89.7 (>/=60) BUN/Creatinine Ratio 17.0 Glucose Level 67 mg/dL (70-110) L Calcium Level 9.5 mg/dL (8.4-10.5) Total Bilirubin 0.5 mg/dL (0.2-1.0) Aspartate Amino Transferase (AST) 41 U/L (0-35) H Alanine Aminotransferase (ALT) 52 U/L (12-78) Alkaline Phosphatase 95 U/L (50-136) Troponin I High Sensitivity 6 ng/L (0-50) Pro-B-Type Natriuretic Peptide 26 pg/mL (0-125) Total Protein 7.7 g/dL (6.4-8.2) Albumin 3.4 g/dL (3.4-5.0) Globulin 4.3 Albumin/Globulin Ratio 0.790 Progress Progress cxr- no acut dz ekg-EKG shows sinus rhythm at 60/min with a HI 185, QRS 129 ms. The exam showed no obvious ST elevation or depression. Patient here with shortness of breath but oxygenation is good. EKG shows nonspecific ST segment changes. No obvious ST elevation or depression. Patient with normal troponin. The patient has normal BNP normal chest x-ray is normal. At this point she has been given albuterol treatment and be discharged on nebulized treatment and some steroids. ER DEPART Departure Time of Disposition: 12:42 Disposition: 01 HOME / SELF CARE / HOMELESS Impression: Primary Impression: Dyspnea Additional Impressions: Chronic obstructive pulmonary disease Acute bronchospasm Condition: Improved Referrals: ARMAND GREENE (PCP) PRIMARY CARE PROVIDER Additional Instructions: Take all medication as described Follow-up with her doctor soon as possible Return to the hospital if any new symptoms develop Duration or Time Spent with Pa: 45 Problem Qualifiers SHANNAN LIZARRAGA MD Oct 09, 2022 11:15
--- NOTE | 2022-10-09 11:34 | DIREP ---
PROCEDURE:CHEST 1 VIEW COMPARISON:[facility], CR, XRAY CHEST SINGLE VW, 01/10/2018, 02:17 PM. [facility], CR, XRAY CHEST SINGLE VW, 07/12/2020, 12:26 PM. INDICATIONS:Short of breath FINDINGS: LUNGS/PLEURA:No significant pulmonary parenchymal abnormalities. No effusions. VASCULATURE:Normal. Unremarkable pulmonary vasculature. CARDIAC:Mild cardiomegaly. MEDIASTINUM:Normal. No visible mass or adenopathy. BONES:Normal. No fracture or visible bony lesion. OTHER:EKG leads overlie the chest. CONCLUSION:Mild cardiomegaly. Otherwise no acute cardiopulmonary abnormalities. Dictated by: Baldomero Quiroz M.D. on 10/09/2022 at 11:31 AM
[2022-10-09 11:38] LABS: BASOPHIL % 0.1 % (0.0-0.2); EOSINOPHIL # 0.3 10^3/uL (0.0-0.2); EOSINOPHIL % 2.8 % (0.0-5.0); LYMPHOCYTES # 2.31 10^3/uL1 (1.0-4.8); LYMPHOCYTES % 24.6 % (24.0-44.0); MEAN CORP HGB 29.6 pg (26-34); MONOCYTES # 0.7 10^3/uL (0.3-0.8); MONOCYTES % 7.9 % (5.0-12.0); NEUTROPHIL # 6.1 10^3/uL (1.8-7.7); NEUTROPHILS % 64.6 % (41.0-85.0); PLATELET COUNT 232 10^3/uL (150-400); RED CELL DISTRIBUTION WIDTH 12.8 % (11.5-14.5)
[2022-10-09 12:00] LABS: CARBON DIOXIDE 32.9 mmol/L (20.0-32)
--- NOTE | 2022-10-09 12:16 | PCM.EKG ---
[facility] Test Date: 2022-10-09 Test Time: 10:58:58 Pat Name: MYLA KAN [facility]: [id number]: Gender: F Dado Operator: : 1975 Requested By: SHANNAN LIZARRAGA Order Number: [id number] Reading MD: Measurements Intervals [place] Rate: 60 P: 45 NM: 185 QRS: 12 QRSD: 129 T: 47 QT: 596 QTc: 596 Interpretive Statements Sinus rhythm Nonspecific intraventricular conduction delay Borderline T abnormalities, anterior leads Baseline wander in lead(s) I,III,aVL Compared to ECG 07/12/2020 12:24:32 Intraventricular conduction delay now present T-wave abnormality now present Prolonged QT interval no longer present Please click the below link to view image of tracing.
[2022-10-09] MEDS ORDERED: PREDNISONE ONE (13:23)
[2022-10-09] MEDS ORDERED: KLOR-CON 10 PO ONE (13:24)
[2022-10-09] MEDS: KLOR-CON 10 PO SCH (13:30)
[2022-10-09] MEDS: PREDNISONE PO ONE (13:30)
[2022-10-09] MEDS ORDERED: VENTOLIN IH ONE (13:36)
[2022-10-09] MEDS: VENTOLIN IH ONE (13:41)
== END 2022-10-09 13:42 | disposition home or self-care (01) ==
LOC: EDBD 10:57 → ER 10:57
DX: R06.00 Dyspnea, unspecified (principal); J44.9 Chronic obstructive pulmonary disease, unspecified; J98.01 Acute bronchospasm; E11.9 Type 2 diabetes mellitus without complications; F17.200 Nicotine dependence, unspecified, uncomplicated; I11.0 Hypertensive heart disease with heart failure; I50.9 Heart failure, unspecified; Z86.73 Personal history of transient ischemic attack (TIA), and cerebral infarction without residual deficits
CPT/HCPCS: 99285; 71045; 80053; 85025; 36415; 85379; 84484; 87040 ×2; 83880; 85610; 85730; 93005; 94640; J7613; J3490; J7512

== ENCOUNTER 2022-10-30 06:28 | Emergency (ER) | payer MEDICAID, OTHER ==
[~2022-10-30] VITALS: Ht 170.2 cm; Wt 127.0 kg
--- NOTE | 2022-10-30 06:35 | NUR ---
ARRIVAL PT ARRIVED VIA EMS TO ED 4 WITH C/O DIZZINESS SINCE MIDNIGHT. PT AMBULATED TO BED FROM [facility]. VITALS TAKEN AND DR NOTIFIED.
[2022-10-30 06:41] VITALS: BP 142/88
--- NOTE | 2022-10-30 07:08 | PCM.EKG ---
[facility] Test Date: 2022-10-30 Test Time: 06:52:47 Pat Name: MYLA KAN Department: Room: Gender: F Ink Jet Operator: TIFFANIE : 1975 Requested By: SIMONE FABIAN Order Number: [id number] Reading MD: Siddharth Fabian Measurements Intervals [place] Rate: 55 P: 22 MS: 158 QRS: -5 QRSD: 105 T: -10 QT: 513 QTc: 491 Interpretive Statements Sinus rhythm Left ventricular hypertrophy Borderline T abnormalities, diffuse leads Borderline prolonged QT interval Compared to ECG 10/09/2022 10:58:58 Left ventricular hypertrophy now present Intraventricular conduction delay no longer present T-wave abnormality still present Electronically Signed On 10-31-2022 6:58:04 WAREHOUSEMAN by Siddharth Fabian Please click the below link to view image of tracing.
[2022-10-30 07:12] LABS: BASOPHIL % 0.1 % (0.0-0.2); EOSINOPHIL # 0.2 10^3/uL (0.0-0.2); EOSINOPHIL % 1.4 % (0.0-5.0); LYMPHOCYTES # 2.57 10^3/uL1 (1.0-4.8); LYMPHOCYTES % 18.3 % (24.0-44.0); MEAN CORP HGB 29.4 pg (26-34); MONOCYTES # 0.9 10^3/uL (0.3-0.8); MONOCYTES % 6.1 % (5.0-12.0); NEUTROPHIL # 10.3 10^3/uL (1.8-7.7); NEUTROPHILS % 73.7 % (41.0-85.0); RED CELL DISTRIBUTION WIDTH 12.8 % (11.5-14.5)
--- NOTE | 2022-10-30 07:23 | DIREP ---
PROCEDURE:CHEST 1 VIEW COMPARISON:[facility], CR, XRAY CHEST SINGLE VW, 10/09/2022, 11:14 AM. INDICATIONS:presyncope FINDINGS: LUNGS/PLEURA:No confluent pulmonary infiltrate, please see below. No effusions. No pneumothorax. VASCULATURE:Prominent and indistinct pulmonary markings suggesting vascular congestion. Viral illness can have a similar appearance. CARDIAC:Mild cardiomegaly. MEDIASTINUM:No visible mass or adenopathy. BONES:No fracture or visible bony lesion. OTHER:The patient is rotated which limits assessment of the mediastinal contours. CONCLUSION: 1. Vascular congestion or viral illness. 2. Mild cardiomegaly. Dictated by: Carly Barnes MD on 10/30/2022 at 07:21 AM
[2022-10-30 07:33] LABS: CARBON DIOXIDE 27.5 mmol/L (20.0-32)
[2022-10-30] MEDS ORDERED: MECLIZINE HCL ONE (07:54)
[2022-10-30] MEDS: MECLIZINE HCL PO STA (07:55)
--- NOTE | 2022-10-30 07:55 | ER.PDOC ---
General Chief Complaint: Dizziness Stated Complaint: DIZZY TRAVEL OUT OF US: No Time seen by MD: 07:00 Source: patient, EMS Exam Limitations: no limitations History of Present Illness Initial Comments Patient is a 47-year-old female with a past medical history of COPD and tardive dyskinesia who comes in with mild lightheadedness for the past 6 hours. Patient states that over the past 6 hours she has had some mild lightheadedness made worse with movement and activity better with rest. Patient denies actually falling over anything like that says it is somewhat associated with some dizz iness. Patient denies any other symptoms or concerns such as fever shortness of breath chest pain etc. Allergies: Coded Allergies: No Known Allergies (Unverified , 09/10/13) Home Meds Active Scripts Glimepiride (AMARYL) 4 Mg Tablet, 1 TAB PO BID, #60 TAB 3 Refills Prov:ABRIL GOMEZ MD 09/15/22 Metformin Hcl (METFORMIN HCL) 500 Mg Tablet, 1 TAB PO BID, #60 TAB 3 Refills Prov:ABRIL GOMEZ MD 09/15/22 Reported Medications Propranolol Hcl (PROPRANOLOL HCL) 40 Mg Tablet, 1 TAB PO DAILY24, #60 TAB 5 Refills 09/14/22 Lisinopril (LISINOPRIL) 5 Mg Tablet, 1 TAB PO DAILY, #30 TAB 5 Refills 09/14/22 Levothyroxine Sodium (LEVOTHYROXINE SODIUM) 100 Mcg Tablet, 1 TAB PO DAILY, #30 TAB 5 Refills 09/14/22 Benztropine Mesylate (BENZTROPINE MESYLATE) 1 Mg Tablet, 1 TAB PO TID, #60 TAB 09/14/22 Atorvastatin 40MG (LIPITOR 40MG) 40 Mg Tablet, 1 TAB PO HS, #90 TAB 1 Refill 09/14/22 Aspirin (ASPIRIN) 325 Mg Tablet, 1 TAB PO DAILY, #30 TAB 5 Refills 09/14/22 Valbenazine Tosylate (Ingrezza) 80 Mg Capsule, 1 CAP PO DAILY24 for 30 Days, #30 CAP 0 Refills 09/14/22 Chlorthalidone (CHLORTHALIDONE) 25 Mg Tablet, 25 MG PO DAILY, TABLET 05/07/14 Amlodipine Besylate (AMLODIPINE BESYLATE) 5 Mg Tablet, 5 MG PO BID, TABLET 05/07/14 Escitalopram Oxalate (ESCITALOPRAM OXALATE) 20 Mg Tablet, 20 MG PO DAILY, #1 TABLET 05/07/14 Past Medical History Medical History: COPD, diabetes Surgical History: other Family History Significant Family History: no pertinent family hx Social History Smoking: less than 1 pack/day Alcohol Use: none Drug Use: none Reviewed Nursing Reviewed: Vital Signs, Abn. Noted, Nursing Assessment Review of Systems Constitutional: denies no symptoms reported, denies see HPI, denies chills, denies diaphoresis, denies fever, denies malaise, denies weakness, denies other EENTM: denies no symptoms reported, denies see HPI, denies eye pain, denies blurred vision, denies tearing, denies double vision, denies ear pain, denies ear discharge, denies nose pain, denies nose congestion, denies throat pain, denies throat swelling, denies mouth pain, denies mouth swelling, denies other Respiratory: denies no symptoms reported, denies see HPI, denies cough, denies orthopnea, denies shortness of breath, denies stridor, denies wheezing, denies other Cardiovascular: other (light headedness) Gastrointestinal: denies no symptoms reported, denies see HPI, denies abdominal pain, denies constipation, denies diarrhea, denies nausea, denies vomiting, denies other Genitourinary: denies no symptoms reported, denies see HPI, denies discharge, denies dysuria, denies frequency, denies hematuria, denies pain, denies other Musculoskeletal: denies no symptoms reported, denies see HPI, denies back pain, denies gout, denies joint pain, denies joint swelling, denies muscle pain, d enies muscle stiffness, denies neck pain, denies other Skin: denies no symptoms reported, denies see HPI, denies change in color, denies change in hair/nails, denies dryness, denies lesions, denies lumps, denies rash, denies other Psychiatric/Neurological: anxiety, other (dizzy) Hematologic/Lymphatic: denies no symptoms reported, denies see HPI, denies anemia, denies blood clots, denies easy bleeding, denies easy bruising, denies swollen glands, denies other Immunological/Allergic: denies no symptoms reported, denies see HPI, denies food allergy, denies grass allergy, denies mold allergy, denies pollen allergy, denies HIV/AIDS, denies transplant Physical Exam General Appearance: Anxious EENT: eyes nml inspection, nml ENT inspection Neck: Non-Tender, Full Range of Motion Respiratory: chest non-tender, lungs clear CVS: reg rate & rhythm, no murmur Gastrointestinal: Normal Bowel Sounds, Non Tender Back: Normal Inspection, No CVA Tenderness Extremities: Normal Range of Motion, Non-Tender 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: No Motor/Sensory Deficits, Alert, Oriented x 3 Skin: Normal Color Lymphatic: No Adenopathy Results/Orders Results/Orders Orders - SIMONE SINGER MD Cbc With Auto Diff (10/30/22 07:05) Comprehensive Metabolic Panel (10/30/22 07:05) PT (10/30/22 07:05) Partial Thromboplastin Time. (10/30/22 07:05) Xr Chest 1v (10/30/22 07:05) Ekg-Routine (10/30/22 07:05) Troponin I High Sensitivity (10/30/22 07:05) Hcg Qualitative Serum (10/30/22 07:05) Meclizine Hcl (Meclizine Hcl) (10/30/22 07:46) Vital Signs Date Time Temp Pulse Resp B/P (MAP) Pulse Ox O2 Delivery O2 Flow Rate FiO2 10/30/22 06:41 98.4 66 18 142/88 (106) 92 Room Air* 0 21 10/30/22 06:41 98.4 66 18 92 10/30/22 06:41 98.4 66 18 09/15/22 08:21 63 Laboratory Tests Test 10/30/22 00:00 10/30/22 07:05 White Blood Count 14.0 10^3/uL (4.5-11.0) H Red Blood Count 5.45 10^6/uL (4.00-5.20) H Hemoglobin 16.0 g/dL (12.0-15.0) H Hematocrit 49.6 % (36.0-46.0) H Mean Corpuscular Volume 91.0 fL (78-100) Mean Corpuscular Hemoglobin 29.4 pg (26-34) Mean Corpuscular Hemoglobin Concent 32.3 g/dL (33-36.5) L Red Cell Distribution Width 12.8 % (11.5-14.5) Platelet Count 265 10^3/uL (150-400) Mean Platelet Volume 9.9 fL (7.8-11.0) Neutrophils (%) (Auto) 73.7 % (41.0-85.0) Lymphocytes (%) (Auto) 18.3 % (24.0-44.0) L Monocytes (%) (Auto) 6.1 % (5.0-12.0) Neutrophils # (Auto) 10.3 10^3/uL (1.8-7.7) H Lymphocytes # (Auto) 2.57 10^3/uL1 (1.0-4.8) Monocytes # (Auto) 0.9 10^3/uL (0.3-0.8) H Absolute Immature Granulocyte (auto 0.06 10^3 u/L (0-2) Absolute Eosinophils (auto) 0.2 10^3/uL (0.0-0.2) Immature Granulocytes % 0.40 % (0.00-0.50) Eosinophils % 1.4 % (0.0-5.0) Basophils % 0.1 % (0.0-0.2) Basophils # 0.0 10^3/uL (0.0-0.1) Sodium Level 143 mmol/L (132-145) Potassium Level 3.6 mmol/L (3.6-5.2) Chloride Level 104.0 mmol/L (96-109) Carbon Dioxide Level 27.5 mmol/L (20.0-32) Anion Gap 15.1 Blood Urea Nitrogen 16 mg/dL (7-18) Creatinine 0.62 mg/dL (0.59-1.40) Estimated GFR () 124.8 (>/=60) Est GFR (CKD-EPI)(Non-Afr Samoan) 103.2 (>/=60) BUN/Creatinine Ratio 25.0 Glucose Level 133 mg/dL (70-110) H Calcium Level 9.6 mg/dL (8.4-10.5) Total Bilirubin 0.4 mg/dL (0.2-1.0) Aspartate Amino Transferase (AST) 25 U/L (0-35) Alanine Aminotransferase (ALT) 36 U/L (12-78) Alkaline Phosphatase 113 U/L (50-136) Troponin I High Sensitivity 5 ng/L (0-50) Total Protein 7.5 g/dL (6.4-8.2) Albumin 3.4 g/dL (3.4-5.0) Globulin 4.1 Albumin/Globulin Ratio 0.829 Serum HCG, Qualitative NEGATIVE (NEGATIVE) Prothrombin Time 11.5 SEC (9.1-11.5) Prothrombin Time INR (Non-Therap) 1.1 Activated Partial Thromboplast Time 29.7 SEC (22.5-33.1) Progress Progress Patient here for some lightheadedness has been going on for 6 hours is very mild patient clinically is well-appearing other than heart rate is a little low is likely secondary to her medications that she is taking we discussed this. We will perform a work-up we will continue to monitor to rule out ACS things like that labs EKG chest x-ray 07 52reassessmentpatient states that she feels much better - we will give her meclizine and discharged with follow-up she voiced understanding when to follow- up and return to ER will dc with meclizine ER DEPART Departure Time of Disposition: 07:53 Disposition: 01 HOME / SELF CARE / HOMELESS Impression: Primary Impression: Light-headed feeling Condition: Improved Patient Instructions: Dizziness, [id number] Referrals: ARMAND GREENE (PCP) PRIMARY CARE PROVIDER Additional Instructions: Follow-up with primary care in 1 week. If you have any new persistent or worsening symptoms or concern seek medical attention. Please take all medications as prescribed. Duration or Time Spent with Pa: 40 SIMONE SINGER MD Oct 30, 2022 07:55
[2022-10-30 07:58] VITALS: BP 142/88
[2022-11-05] MEDS ORDERED: ARIP10TA9 PO (13:03)
[2022-11-05] MEDS ORDERED: PROP20TA PO (13:03)
[2022-11-05] MEDS ORDERED: ALBU90AE IH (13:03)
[2022-11-05] MEDS ORDERED: HYDR10SY15 PO (13:03)
[2022-11-05] MEDS ORDERED: POTA20TA89 PO (13:03)
[2022-11-05] MEDS ORDERED: ASPI81TA13 PO (13:03)
[2022-11-05] MEDS ORDERED: PRED20TA PO (13:03)
[2022-11-05] MEDS ORDERED: ALBU2SYR3 PO (13:03)
== END 2022-10-30 07:57 | disposition home or self-care (01) ==
LOC: EDBD 06:28 → EDUNIT# 06:28 → ER 06:28
DX: R42 Dizziness and giddiness (principal); E11.9 Type 2 diabetes mellitus without complications; F17.210 Nicotine dependence, cigarettes, uncomplicated; J44.9 Chronic obstructive pulmonary disease, unspecified
CPT/HCPCS: 36415; 71045; 80053; 84484; 84703; 85025; 85610; 85730; 93005; 99285; J8597

== ENCOUNTER → 2022-11-05 | Outpatient (CLI) | payer OTHER ==
[~2022-11-05] MED LIST changes: +ALBU2SYR3 PO; +ALBU90AE IH; +ARIP10TA9 PO; +ASPI81TA13 PO; +HYDR10SY15 PO; +POTA20TA89 PO; +PRED20TA PO; +PROP20TA PO
== END | disposition home or self-care (01) ==
LOC: NPLAB 21:01
PROVIDERS: ATTEND Nurse Practitioner Family
DX: U07.1 COVID-19 (principal)
CPT/HCPCS: 87637

== ENCOUNTER 2022-11-10 10:00 | Day surgery (SDC) | payer MEDICARE, OTHER ==
[2022-11-05 10:21] VITALS: BP 144/67
[2022-11-05 11:21] LABS: BASOPHIL % 0.3 % (0.0-0.2); EOSINOPHIL # 0.2 10^3/uL (0.0-0.2); EOSINOPHIL % 2.4 % (0.0-5.0); LYMPHOCYTES # 1.54 10^3/uL1 (1.0-4.8); LYMPHOCYTES % 19.7 % (24.0-44.0); MEAN CORP HGB 29.7 pg (26-34); MONOCYTES # 0.7 10^3/uL (0.3-0.8); MONOCYTES % 8.8 % (5.0-12.0); NEUTROPHIL # 5.4 10^3/uL (1.8-7.7); NEUTROPHILS % 68.4 % (41.0-85.0); PLATELET COUNT 217 10^3/uL (150-400); RED CELL DISTRIBUTION WIDTH 13.2 % (11.5-14.5)
[2022-11-05 11:35] LABS: CARBON DIOXIDE 29.7 mmol/L (20.0-32)
--- NOTE | 2022-11-05 16:03 | PCM.EKG ---
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
[2022-11-10] VITALS (9 sets, daily range): BP systolic 114–144; BP diastolic 65–109
[~2022-11-10] VITALS: Ht 170.2 cm; Wt 129.3 kg
[~2022-11-10 10:00] MED LIST changes: +BENZ1TAB PO; -BENZ1TAB5 PO; +NS 1000ML 1,000 ML IV ONE; +NS 1000ML 1,000 ML ONE
[2022-11-10] MEDS ORDERED: XYLOCAINE 2% 5ML VIAL ONE (10:25)
[2022-11-10] MEDS ORDERED: SUBLIMAZE ONE (10:26)
[2022-11-10] MEDS ORDERED: VERSED ONE (10:27)
[2022-11-10] MEDS ORDERED: ATROPINE SULFATE ONE (11:18)
[2022-11-10] MEDS ORDERED: NS 1000ML 1,000 ML ONE (11:27)
[2022-11-10] MEDS ORDERED: APRESOLINE ONE (14:13)
--- NOTE | 2022-11-11 00:06 | CCRH ---
DATE OF SERVICE: 11/10/2022 DICTATOR NAME: LIZANDRO ZHENG, CARDIAC CATHETERIZATION REPORT INDICATIONS: Abnormal cardiac ischemic workup. This is a 47-year-old female who was evaluated in the outpatient setting and was noted to have abnormal cardiac workup with unstable angina. She was then set up for left heart catheterization after informed consent were obtained. PROCEDURES PERFORMED: * Selective coronary angiography. * Left ventriculography. * Hemostasis established using a 6-Ethiopian Mynx control. DESCRIPTION OF PROCEDURE: Access was obtained using a 4-Ethiopian micropuncture sheath to cannulate the right common femoral artery. The 4-Ethiopian sheath was then upsized to a 6-Ethiopian regular short sheath. Diagnostic angiography was then carried out using a Anais left catheter to engage the left main artery. The left main artery was noted to be angiographically normal. It bifurcates into left anterior descending artery and the left circumflex artery. The left anterior descending artery is noted to have mild luminal irregularities. It gives rise to a large caliber diagonal branch that is noted to have mild luminal irregularities. The left circumflex artery is noted to be codominant and with mild luminal irregularities. It gives rise to 4 obtuse marginal branches that are all noted to have mild luminal irregularities. The Anais left catheter was then exchanged for a Anais right catheter, which was used to cross the aortic valve into the left ventricle. Left ventriculography was performed. LVEF was noted to be 55%. LVEDP was noted to be 10. Upon pullback of the catheter, there was no gradient across the aortic valve. The Anais right catheter was then used to engage the RCA. RCA angiography showed a dominant RCA with mild luminal irregularities. The RCA bifurcates distally to a right posterior descending artery and a right posterolateral artery. Both vessels are noted to have mild luminal irregularities. The Anais right catheter was then taken out and hemostasis was established using a 6-Ethiopian Mynx control. 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 There were no complications. IMPRESSION: * Nonobstructive coronary artery disease. * Selective coronary angiography. * Left ventriculography. * Left ventricular ejection fraction of 55%. * Left ventricular end-diastolic pressure of 10. * Hemostasis established using a 6-Ethiopian Mynx control. RECOMMENDATIONS: No coronary intervention is necessary at this time. Lifestyle modification factors have been strongly advised. The patient will be discharged home today to follow up with me in the office in 2 weeks. Jorge Luis PAEZ D.O. DR: BAILEE/ANTONIA TID: [id number] RECEIPT: [id number]
== END 2022-11-10 14:01 | disposition home or self-care (01) ==
LOC: SDC 10:00
PROVIDERS: ATTEND Internal Medicine Interventional Cardiology
DX: I25.110 Atherosclerotic heart disease of native coronary artery with unstable angina pectoris (principal); I87.2 Venous insufficiency (chronic) (peripheral); I10 Essential (primary) hypertension; E03.9 Hypothyroidism, unspecified; J44.9 Chronic obstructive pulmonary disease, unspecified; F34.1 Dysthymic disorder; E66.09 Other obesity due to excess calories; E11.65 Type 2 diabetes mellitus with hyperglycemia; Z82.3 Family history of stroke; Z79.84 Long term (current) use of oral hypoglycemic drugs; Z79.890 Hormone replacement therapy; Z79.899 Other long term (current) drug therapy; Z86.73 Personal history of transient ischemic attack (TIA), and cerebral infarction without residual deficits; Z87.891 Personal history of nicotine dependence; Z82.49 Family history of ischemic heart disease and other diseases of the circulatory system; Z68.41 Body mass index [BMI] 40.0-44.9, adult
CPT/HCPCS: 80053; 85025; 36415; 85610; 85730; 93005; 93458; 82948 ×2; 81025; 99152; J1644; C1894 ×2; J0360; J0461; J2001; J2250; J3010; C1769; C1760; Q9967; J7030

== ENCOUNTER → 2022-11-25 | Outpatient (CLI) | payer MEDICARE ==
[~2022-11-25] MED LIST changes: -BENZ1TAB PO; +BENZ1TAB5 PO; -NS 1000ML 1,000 ML IV ONE; -NS 1000ML 1,000 ML ONE
--- NOTE | 2022-11-26 01:06 | PRP ---
DATE OF PROCEDURE: 11/25/2022 DICTATOR NAME: LIZANDRO ZHENG DO POST VENOUS ABLATION DOPPLER ULTRASOUND INDICATION: Status post Varithena ablation of the right greater saphenous vein. FINDINGS: There is no evidence of deep venous thrombosis in the right lower extremity. The right greater saphenous vein is noncompressible. Hyperechoic material is visualized in the right greater saphenous vein. There is no evidence of venous flow in the right greater saphenous vein. IMPRESSION: * Successful Varithena ablation of the right greater saphenous vein. * There is no evidence of deep venous thrombosis in the right lower extremity. Jorge Luis PAEZ D.O. DR: FREDY TID: [id number] RECEIPT: [id number]
== END | disposition home or self-care (01) ==
LOC: RAD 07:46
PROVIDERS: ATTEND Internal Medicine Interventional Cardiology
DX: I87.2 Venous insufficiency (chronic) (peripheral) (principal)
CPT/HCPCS: 93971

== ENCOUNTER → 2022-12-02 | Outpatient (CLI) | payer MEDICARE ==
--- NOTE | 2022-12-02 11:51 | PRP ---
DATE OF PROCEDURE: 12/02/2022 DICTATOR NAME: LIZANDRO ZHENG DO POST VENOUS ABLATION ULTRASOUND INDICATION: Status post Varithena ablation of the right small saphenous vein. FINDINGS: There is no evidence of deep venous thrombosis in the right lower extremity. The right small saphenous vein is noncompressible. Hyperechoic material is visualized in the right small saphenous vein. There is no evidence of venous flow in the right small saphenous vein. IMPRESSION: * Successful Varithena ablation of the right small saphenous vein. * There is no evidence of deep venous thrombosis in the right lower extremity. Jorge Luis PAEZ D.O. DR: KA/CHA TID: [id number] RECEIPT: [id number]
== END | disposition home or self-care (01) ==
LOC: RAD 09:00
PROVIDERS: ATTEND Internal Medicine Interventional Cardiology
DX: I87.2 Venous insufficiency (chronic) (peripheral) (principal)
CPT/HCPCS: 93971

== ENCOUNTER → 2022-12-11 | Outpatient (CLI) | payer MEDICARE ==
--- NOTE | 2022-12-12 03:21 | PRP ---
DATE OF PROCEDURE: 12/11/2022 DICTATOR NAME: LIZANDRO ZHENG DO POST VENOUS ABLATION DOPPLER ULTRASOUND INDICATION: Status post Varithena ablation of the left greater saphenous vein. FINDINGS: There is no evidence of deep venous thrombosis in the left lower extremity. The left greater saphenous vein is noncompressible. Hyperechoic material is visualized in the left greater saphenous vein. There is no evidence of venous flow in the left greater saphenous vein. IMPRESSION: * Successful Varithena ablation of the left greater saphenous vein. * There is no evidence of deep venous thrombosis in the left lower extremity. Jorge Luis PAEZ D.O. DR: YENNI TID: [id number] RECEIPT: [id number]
== END | disposition home or self-care (01) ==
LOC: RAD 08:58
PROVIDERS: ATTEND Internal Medicine Interventional Cardiology
DX: I87.2 Venous insufficiency (chronic) (peripheral) (principal)
CPT/HCPCS: 93971

== ENCOUNTER 2023-03-16 18:25 | Emergency (ER) | payer MEDICARE, OTHER ==
[~2023-03-16] VITALS: Ht 170.2 cm; Wt 127.0 kg
[~2023-03-16 18:25] MED LIST changes: +BENZ1TAB PO; -BENZ1TAB5 PO
--- NOTE | 2023-03-16 18:30 | NUR ---
PT ARRIVED AMBULATORY TO ED C/O SOB, FEVER AND N/V/D. X 1 DAY . MONITORS APPLIED, DR. ALEMAN NOTIFIED OF PT ARRIVAL AND CONCERNS.
[2023-03-16 18:43] VITALS: BP 135/74
[2023-03-16] MEDS ORDERED: ZOFRAN ODT SL STA (18:49)
[2023-03-16] MEDS ORDERED: ZOFRAN ODT ONE (18:54)
[2023-03-16] MEDS ORDERED: LOMOTIL PO STA (18:55)
--- NOTE | 2023-03-16 18:55 | ER.PDOC ---
General Chief Complaint: Requesting Medical Care Stated Complaint: FEVER,SOB,N/V/D Time seen by MD: 19:00 Source: patient Exam Limitations: no limitations History of Present Illness Timing/Duration: 24 hours Severity: moderate Activities at Onset: activity/exertion Prior Episodes/Possible Cause: occasional episodes Modifying Factors: improves with albuterol inhaler, improves with albuterol nebulizer Associated Symptoms: fever, pain, wheezing Prior symptoms/Treatment: Similar symptoms previous Allergies: Coded Allergies: No Known Allergies (Unverified , 11/05/22) Home Meds Active Scripts Glimepiride (AMARYL) 4 Mg Tablet, 1 TAB PO BID, #60 TAB 3 Refills Prov:ABRIL GOMEZ MD 09/15/22 Metformin Hcl (METFORMIN HCL) 500 Mg Tablet, 1 TAB PO BID, #60 TAB 3 Refills Prov:ABRIL GOMEZ MD 09/15/22 Reported Medications Potassium Chloride (Potassium Chloride) 20 Meq Tablet.er, 1 TAB PO QD for 30 Days, #30 TAB 0 Refills 11/05/22 Hydroxyzine Hcl (HYDROXYZINE HCL) 10 Mg/5 Ml Syrup, 10 MG PO BID for 30 Days, ML 11/05/22 Propranolol Hcl (PROPRANOLOL HCL) 20 Mg Tablet, 1 TAB PO QD, #60 TAB 2 Refills 11/05/22 Aripiprazole (ABILIFY) 10 Mg Tablet, 1 TAB PO QD for 30 Days, #30 TAB 0 Refills 11/05/22 Aspirin (LOW DOSE ASPIRIN EC) 81 Mg Tablet.dr, 1 TAB PO DAILY, #30 TAB 3 Refills 11/05/22 Albuterol Sulfate (Proair Respiclick) 90 Mcg Aer.pow.ba, 90 MCG IH Q6 for 30 Days, PKG 11/05/22 Albuterol Sulfate (ALBUTEROL SULFATE) 2 Mg/5 Ml Syrup, 5 MILLILITER PO Q6, #150 MILLILITER 11/05/22 Prednisone (PREDNISONE) 20 Mg Tablet, 1 TAB PO BID, #10 TAB 11/05/22 Lisinopril (LISINOPRIL) 5 Mg Tablet, 1 TAB PO DAILY, #30 TAB 5 Refills 09/14/22 Levothyroxine Sodium (LEVOTHYROXINE SODIUM) 100 Mcg Tablet, 1 TAB PO DAILY, #30 TAB 5 Refills 10/16/22 Benztropine Mesylate (BENZTROPINE MESYLATE) 1 Mg Tablet, 1 TAB PO TID, #60 TAB 09/14/22 Atorvastatin 40MG (LIPITOR 40MG) 40 Mg Tablet, 1 TAB PO HS, #90 TAB 1 Refill 09/14/22 Valbenazine Tosylate (Ingrezza) 80 Mg Capsule, 1 CAP PO DAILY24 for 30 Days, #30 CAP 0 Refills 09/14/22 Chlorthalidone (CHLORTHALIDONE) 25 Mg Tablet, 25 MG PO DAILY, TABLET 05/07/14 Amlodipine Besylate (AMLODIPINE BESYLATE) 5 Mg Tablet, 5 MG PO BID, TABLET 05/07/14 Escitalopram Oxalate (ESCITALOPRAM OXALATE) 20 Mg Tablet, 20 MG PO DAILY, #1 TABLET 05/07/14 Past Medical History Medical History: COPD, diabetes, hypertension Surgical History: other Social History Alcohol Use: rarely Drug Use: none Reviewed Nursing Reviewed: Vital Signs, Abn. Noted Review of Systems Constitutional: no symptoms reported EENTM: no symptoms reported Respiratory: shortness of breath, wheezing Cardiovascular: no symptoms reported Gastrointestinal: diarrhea, nausea, vomiting Genitourinary: no symptoms reported Skin: no symptoms reported Psychiatric/Neurological: no symptoms reported All Other Systems: Reviewed and Negative Physical Exam General Appearance: No Apparent Distress, WD/WN HEENT: PERRL/EOMI, Normal ENT Inspection, TMs Normal, Pharynx Normal Neck: Non-Tender, Full Range of Motion, Supple, Normal Inspection Respiratory: rales, rhonchi Cardiovascular: Normal Peripheral Pulses, Regular Rate, Rhythm, No Edema, No Gallop, No JVD, No Murmur Gastrointestinal: Normal Bowel Sounds, No Organomegaly, No Pulsatile Mass, Non Tender, Soft Extremities: Normal Range of Motion, Non-Tender, Normal Inspection, No Pedal Edema, No Calf Tenderness, Normal Capillary Refill 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, No Motor/Sensory Deficits, Alert, Normal Mood/Affect, Oriented x 3 Results/Orders Results/Orders Orders - MIRNA TORRES MD Strep Screen (03/16/23 19:24) Influenza A&B (03/16/23 19:24) Covid19 Antigen [place] Deborah (03/16/23 19:24) Urinalysis (03/16/23 19:24) Xr Toe Lt (03/16/23 19:29) Urine Culture (03/16/23 UNK) Vital Signs Date Time Temp Pulse Resp B/P (MAP) Pulse Ox O2 Delivery O2 Flow Rate FiO2 03/16/23 18:43 99.3 98 20 135/74 (94) 94 Room Air* 0 21 03/16/23 18:43 98 20 03/16/23 18:43 98 20 94 Administered Medications Medications (Trade) Dose Ordered Sig/Nisreen Route PRN Reason Start Time Stop Time Status Last Admin Dose Admin Ondansetron HCl (Zofran Odt) 4 mg STAT STAT SL 03/16/23 18:49 03/16/23 18:53 DC 03/16/23 18:56 4 MG Sodium Chloride 1,000 ml @ 0 mls/hr Q0M ONCE IV 03/16/23 19:00 03/16/23 19:01 UNV 03/16/23 19:18 1,000 MLS/HR Laboratory Tests Test 03/16/23 00:00 03/16/23 19:05 Urine Collection Type RANDOM Urine Color YELLOW Urine Appearance CLOUDY Urine Bilirubin NEGATIVE (NEGATIVE) Urine Ketones NEGATIVE (NEGATIVE) Urine Specific [place] 1.020 (1.005-1.030) Urine pH 7.0 (4.5-8.0) Urine Protein 2+ (NEGATIVE) H Urine Urobilinogen 0.2 E.U./dL (0.2) Urine Nitrate NEGATIVE (NEGATIVE) Urine Leukocyte Esterase NEGATIVE (NEGATIVE) Urine Glucose (Auto)(UA) NEGATIVE (NEGATIVE) Urine Blood NEGATIVE (NEGATIVE) Urine RBC 0-2 RBC/HPF (NONE SEEN) Urine WBC 0-2 WBC/HPF (0-2) Urine Squamous Epithelial Cells MODERATE (<=FEW) Urine Bacteria FEW (NONE SEEN) H Influenza Type A Antigen NEGATIVE (NEG) Influenza Type B Antigen NEGATIVE (NEG) SARS-CoV-2 Antigen (Rapid) NEGATIVE (NEGATIVE) Group A Streptococcus Screen NEGATIVE (NEGATIVE) White Blood Count 12.1 10^3/uL (4.5-11.0) H Red Blood Count 5.55 10^6/uL (4.00-5.20) H Hemoglobin 16.3 g/dL (12.0-15.0) H Hematocrit 49.1 % (36.0-46.0) H Mean Corpuscular Volume 88.5 fL (78-100) Mean Corpuscular Hemoglobin 29.4 pg (26-34) Mean Corpuscular Hemoglobin Concent 33.2 g/dL (33-36.5) Red Cell Distribution Width 14.6 % (11.5-14.5) H Platelet Count 246 10^3/uL (150-400) Mean Platelet Volume 10.0 fL (7.8-11.0) Neutrophils (%) (Auto) 86.5 % (41.0-85.0) H Lymphocytes (%) (Auto) 6.8 % (24.0-44.0) *L Monocytes (%) (Auto) 6.0 % (5.0-12.0) Neutrophils # (Auto) 10.5 10^3/uL (1.8-7.7) H Lymphocytes # (Auto) 0.83 10^3/uL1 (1.0-4.8) L Monocytes # (Auto) 0.7 10^3/uL (0.3-0.8) Absolute Immature Granulocyte (auto 0.05 10^3 u/L (0-2) Absolute Eosinophils (auto) 0.0 10^3/uL (0.0-0.2) Immature Granulocytes % 0.40 % (0.00-0.50) Eosinophils % 0.2 % (0.0-5.0) Basophils % 0.1 % (0.0-0.2) Basophils # 0.0 10^3/uL (0.0-0.1) Prothrombin Time 11.6 SEC (9.1-11.5) H INR 1.1 Activated Partial Thromboplast Time 28.1 SEC (22.5-33.1) POC Blood Gas Site VBG O2 Saturation 74.2 (70-75) Andrew Test N/A Venous Blood pH 7.495 (7.32-7.43) H Venous Blood pCO2 at Patient Temp 32.0 MMHG (41-51) L POC Venous pO2 34.8 MMHG (30-50) Venous Blood Base Excess 1.8 Venous Blood Temperature 37 Blood Gas Total Hemoglobin 17.5 % (12.0-16.0) H Deoxyhemoglobin 24.8 % (0.0-5.0) H Carboxyhemoglobin 3.5 % (0.0-3.9) Methemoglobin 0.2 % (0.00-5.0) Total Oxygen Concentration 17.5 % (13.5-17.5) FiO2 28 % (20-101) Sodium Level 142 mmol/L (132-145) Potassium Level 3.4 mmol/L (3.6-5.2) L Chloride Level 102.0 mmol/L (96-109) Carbon Dioxide Level 30.0 mmol/L (20.0-32) Total Carbon Dioxide 25.1 mmol/L (23-27) Bicarbonate 24.1 mmol/L (24-28) Anion Gap 13.4 Blood Urea Nitrogen 14 mg/dL (7-18) Creatinine 0.86 mg/dL (0.59-1.40) Estimated GFR () 85.6 (>/=60) Est GFR (CKD-EPI)(Non-Afr Gambian) 70.7 (>/=60) BUN/Creatinine Ratio 16.0 (10.0-20.0) Glucose Level 114 mg/dL (70-110) H Calcium Level 8.8 mg/dL (8.4-10.5) Total Bilirubin 0.7 mg/dL (0.2-1.0) Aspartate Amino Transferase (AST) 11 U/L (0-35) Alanine Aminotransferase (ALT) 15 U/L (12-78) Alkaline Phosphatase 93 U/L (50-136) Total Creatine Kinase 68 U/L (26-192) Creatine Kinase MB 0.6 ng/mL (0.5-3.6) Troponin I High Sensitivity 5 ng/L (0-50) Pro-B-Type Natriuretic Peptide 193 pg/mL (0-125) H Total Protein 7.6 g/dL (6.4-8.2) Albumin 3.5 g/dL (3.4-5.0) Globulin 4.1 Albumin/Globulin Ratio 0.853 Acetone, Semi-Quantitative NEGATIVE Progress Progress TO DR VARGAS Torres: Workup is most suggestive of a gastroenteritis. We will treat therefor. EKG/XRAY/CT/US EKG: NSR (NSR. appropriate T waves good RWP no ST elevations or depressions. Artifactual findings related to her chronic tremor.) ER DEPART Departure Time of Disposition: 20:45 Disposition: 01 HOME / SELF CARE / HOMELESS Impression: Primary Impression: Gastroenteritis Condition: Stable Patient Instructions: Clear Liquid Diet, Diet for Diarrhea, Adult, Viral Gastroenteritis Referrals: MICHAEL GLEASON MD (PCP) PRIMARY CARE PROVIDER Additional Instructions: Clear liquid diet for 24-48 hours, then diet for diarrhea for 48 hours, advance thereafter as tolerated. Use nausea medication as needed. Return if chest pain, dyspnea/shortness of breath, or other concerning symptoms develop. Duration or Time Spent with Pa: 15 min BRETT ALEMAN MD Mar 16, 2023 18:55 MIRNA TORRES MD Mar 16, 2023 20:48
[2023-03-16] MEDS ORDERED: ZOFRAN IV STA (18:58)
[2023-03-16] MEDS ORDERED: NS 1000ML 1,000 ML IV ONE (19:00)
[2023-03-16 19:10] LABS: BASOPHIL % 0.1 % (0.0-0.2); EOSINOPHIL % 0.2 % (0.0-5.0); LYMPHOCYTES # 0.83 10^3/uL1 (1.0-4.8); LYMPHOCYTES % 6.8 % (24.0-44.0); MEAN CORP HGB 29.4 pg (26-34); MONOCYTES # 0.7 10^3/uL (0.3-0.8); NEUTROPHIL # 10.5 10^3/uL (1.8-7.7); NEUTROPHILS % 86.5 % (41.0-85.0); PLATELET COUNT 246 10^3/uL (150-400); RED CELL DISTRIBUTION WIDTH 14.6 % (11.5-14.5)
[2023-03-16] MEDS ORDERED: NS 1000ML 1,000 ML ONE (19:14)
--- NOTE | 2023-03-16 19:19 | DIREP ---
PROCEDURE:CHEST 1 VIEW COMPARISON:[facility], CR, XRAY CHEST SINGLE VW, 10/30/2022, 07:11 AM. [facility], CR, XRAY CHEST SINGLE VW, 10/09/2022, 11:14 AM. [facility], CR, XRAY CHEST SINGLE VW, 07/12/2020, 12:26 PM. INDICATIONS:sob FINDINGS: LUNGS/PLEURA:No significant pulmonary parenchymal abnormalities. No effusions. No pneumothorax. VASCULATURE:Normal. Unremarkable pulmonary vasculature. CARDIAC:Normal. No cardiac silhouette abnormality or cardiomegaly. MEDIASTINUM:Normal. No visible mass or adenopathy. BONES:Mild degenerative changes. OTHER:Negative. CONCLUSION:No acute pulmonary process. Dictated by: Michael Holt M.D. on 03/16/2023 at 07:17 PM
--- NOTE | 2023-03-16 19:30 | PCM.EKG ---
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
[2023-03-16 19:45] LABS: BILIRUBIN,URINE NEGATIVE (NEGATIVE)
[2023-03-16 19:46] LABS: UROBILINOGEN,URINE 0.2 E.U./dL (0.2)
--- NOTE | 2023-03-16 20:51 | NUR ---
iv discontiued catheter tip intact.2x2 and cobamn applied. no redness or swelling to site
[2023-03-16 20:54] VITALS: BP 131/73
--- NOTE | 2023-03-19 15:13 | NUR ---
PRESCRIPTION CALLED AUGMENTIN 875MG BY MOUTH TWO TIMES A DAY #14 TO [facility] IN [place], SPOKE WITH PATIENT AND WILL GO TO PHARMACY AND GET PRESCRIPTION
== END 2023-03-16 20:55 | disposition home or self-care (01) ==
LOC: ER 18:25
DX: K52.9 Noninfective gastroenteritis and colitis, unspecified (principal); J44.9 Chronic obstructive pulmonary disease, unspecified; E11.9 Type 2 diabetes mellitus without complications; I10 Essential (primary) hypertension; Z20.822 Contact with and (suspected) exposure to COVID-19
CPT/HCPCS: 99285; 96360; 71045; 87426; 87086; 80053; 85025; 36415; 84484; 87070; 87880; 87804 ×2; 82553; 81001; 83880; 82010; 82550; 85610; 85730; 93005; 82803; J7030

== ENCOUNTER 2023-06-09 16:40 | Emergency (ER) | payer OTHER ==
[~2023-06-09] VITALS: Ht 170.2 cm; Wt 126.1 kg
[2023-06-09 16:40] VITALS: BP 128/83
[~2023-06-09 16:40] MED LIST changes: -POTA20TA89 PO; +[UNRECOGNIZED DRUG - CODE] PO
[2023-06-09] MEDS ORDERED: DUO 0.5-3(2.5) MG/3 ML IH STA (17:00)
[2023-06-09] MEDS ORDERED: DECADRON IH STA (17:00)
[2023-06-09] MEDS ORDERED: PREDNISONE PO STA (17:00)
--- NOTE | 2023-06-09 17:03 | PCM.EKG ---
[facility] Test Date: 2023-06-09 Test Time: 16:44:05 Pat Name: MYLA KAN Department: ER Room: Gender: F Cad Operator: CAROLYN : 1975 Requested By: BRANDT ROBLERO Order Number: [id number] Reading MD: Brandt ROBLERO Measurements Intervals [place] Rate: 87 P: -14 [place]: 127 QRS: -24 QRSD: 104 T: -19 QT: 420 QTc: 506 Interpretive Statements Sinus rhythm Borderline left axis deviation Nonspecific T abnormalities, diffuse leads Borderline prolonged QT interval Compared to ECG 03/16/2023 18:53:11 T-wave abnormality now present Atrial flutter no longer present Left ventricular hypertrophy no longer present Early repolarization no longer present Electronically Signed On 06-11-2023 21:54:25 CDT by Brandt ROBLERO Please click the below link to view image of tracing.
--- NOTE | 2023-06-09 17:06 | ER.PDOC ---
General Chief Complaint: Dyspnea/Respdistress Stated Complaint: TROUBLE BREATHING Time seen by MD: 17:03 Source: patient Exam Limitations: no limitations History of Present Illness Initial Comments Trouble breathing since this morning. No chest pain. No cough. No fever or chills. Patient has COPD and ran out of her breathing treatment. Severity: moderate Prior Episodes/Possible Cause: occasional episodes, chronic episodes Modifying Factors: improves with albuterol nebulizer Associated Symptoms: wheezing Allergies: Coded Allergies: No Known Allergies (Unverified , 11/05/22) Home Meds Active Scripts Glimepiride (AMARYL) 4 Mg Tablet, 1 TAB PO BID, #60 TAB 3 Refills Prov:ABRIL GOMEZ MD 09/15/22 Metformin Hcl (METFORMIN HCL) 500 Mg Tablet, 1 TAB PO BID, #60 TAB 3 Refills Prov:ABRIL GOMEZ MD 09/15/22 Reported Medications Potassium Chloride (Potassium Chloride) 20 Meq Tablet.er, 1 TAB PO QD for 30 Days, #30 TAB 0 Refills 11/05/22 Hydroxyzine Hcl (HYDROXYZINE HCL) 10 Mg/5 Ml Syrup, 10 MG PO BID for 30 Days, ML 11/05/22 Propranolol Hcl (PROPRANOLOL HCL) 20 Mg Tablet, 1 TAB PO QD, #60 TAB 2 Refills 11/05/22 Aripiprazole (ABILIFY) 10 Mg Tablet, 1 TAB PO QD for 30 Days, #30 TAB 0 Refills 11/05/22 Aspirin (LOW DOSE ASPIRIN EC) 81 Mg Tablet.dr, 1 TAB PO DAILY, #30 TAB 3 Refills 11/05/22 Albuterol Sulfate (Proair Respiclick) 90 Mcg Aer.pow.ba, 90 MCG IH Q6 for 30 Days, PKG 11/05/22 Albuterol Sulfate (ALBUTEROL SULFATE) 2 Mg/5 Ml Syrup, 5 MILLILITER PO Q6, #150 MILLILITER 11/05/22 Prednisone (PREDNISONE) 20 Mg Tablet, 1 TAB PO BID, #10 TAB 11/05/22 Lisinopril (LISINOPRIL) 5 Mg Tablet, 1 TAB PO DAILY, #30 TAB 5 Refills 09/14/22 Levothyroxine Sodium (LEVOTHYROXINE SODIUM) 100 Mcg Tablet, 1 TAB PO DAILY, #30 TAB 5 Refills 10/16/22 Benztropine Mesylate (BENZTROPINE MESYLATE) 1 Mg Tablet, 1 TAB PO TID, #60 TAB 09/14/22 Atorvastatin 40MG (LIPITOR 40MG) 40 Mg Tablet, 1 TAB PO HS, #90 TAB 1 Refill 09/14/22 Valbenazine Tosylate (Ingrezza) 80 Mg Capsule, 1 CAP PO DAILY24 for 30 Days, #30 CAP 0 Refills 09/14/22 Chlorthalidone (CHLORTHALIDONE) 25 Mg Tablet, 25 MG PO DAILY, TABLET 05/07/14 Amlodipine Besylate (AMLODIPINE BESYLATE) 5 Mg Tablet, 5 MG PO BID, TABLET 05/07/14 Escitalopram Oxalate (ESCITALOPRAM OXALATE) 20 Mg Tablet, 20 MG PO DAILY, #1 TABLET 05/07/14 Past Medical History Medical History: COPD, diabetes, hypertension Surgical History: other Family History Significant Family History: no pertinent family hx Social History Smoking: non-smoker Alcohol Use: none Drug Use: none Review of Systems Constitutional: no symptoms reported EENTM: no symptoms reported Respiratory: see HPI Cardiovascular: no symptoms reported Gastrointestinal: no symptoms reported All Other Systems: Reviewed and Negative Physical Exam General Appearance: No Apparent Distress Neck: Non-Tender, Full Range of Motion, Supple, Normal Inspection Respiratory: chest non-tender, no respiratory distress, no accessory muscle use, decreased breath sounds, prolonged expirations, wheezing (Mild) Cardiovascular: Normal Peripheral Pulses, Regular Rate, Rhythm, No Edema, No Gallop, No JVD, No Murmur Gastrointestinal: Normal Bowel Sounds, No Organomegaly, No Pulsatile Mass, Non Tender, Soft Extremities: Non-Tender, Normal Inspection, Other (Right upper and lower extremity tremors caused from surgery that was done to clip a brain aneurysm) 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: 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 as Tested, No Motor/Sensory Deficits, Alert, Normal Mood/Affect, Oriented x 3 Skin: Normal Color, Warm/Dry Lymphatic: No Adenopathy Results/Orders Results/Orders Orders - BRANDT ROBLERO MD EKG (06/09/23 17:00) Xr Chest 1v (06/09/23 17:00) Cbc With Auto Diff (06/09/23 17:00) Comprehensive Metabolic Panel (06/09/23 17:00) Creatine Kinase (06/09/23 17:00) Creatine Kinase Mb (06/09/23 17:00) Probnp B-Type Sorting Cows Worker (06/09/23 17:00) D-Dimer (06/09/23 17:00) Troponin I High Sensitivity (06/09/23 17:00) Ipratropium/Albuterol Sulfate (Duo 0.5-3 (06/09/23 17:00) Dexamethasone Sodium Phosp/Pf (Decadron) (06/09/23 17:00) Prednisone (Prednisone) (06/09/23 17:00) Dexamethasone Sodium Phosphate (Decadron (06/09/23 17:31) Ipratropium/Albuterol Sulfate (Duo 0.5-3 (06/09/23 17:31) Prednisone (Prednisone) (06/09/23 17:56) Vital Signs Date Time Temp Pulse Resp B/P (MAP) Pulse Ox O2 Delivery O2 Flow Rate FiO2 06/09/23 17:30 88 18 96 Nasal Cannula* 2 28 06/09/23 17:00 88 18 96 Nasal Cannula* 2 28 06/09/23 16:40 98.1 88 18 96 06/09/23 16:40 98.1 88 18 06/09/23 16:40 98.1 88 18 128/83 (98) 96 Room Air* 0 21 Administered Medications Medications (Trade) Dose Ordered Sig/Nisreen Route PRN Reason Start Time Stop Time Status Last Admin Dose Admin Albuterol/ Ipratropium (Duo 0.5-3(2.5) Mg/3 ml) 3 ml STAT STAT IH 06/09/23 17:00 06/09/23 17:04 DC 06/09/23 18:25 3 ML Prednisone (Prednisone) 40 mg STAT STAT PO 06/09/23 17:00 06/09/23 17:04 DC 06/09/23 17:59 40 MG Laboratory Tests Test 06/09/23 17:12 White Blood Count 10.0 10^3/uL (4.5-11.0) Red Blood Count 5.13 10^6/uL (4.00-5.20) Hemoglobin 14.9 g/dL (12.0-15.0) Hematocrit 45.5 % (36.0-46.0) Mean Corpuscular Volume 88.7 fL (78-100) Mean Corpuscular Hemoglobin 29.0 pg (26-34) Mean Corpuscular Hemoglobin Concent 32.7 g/dL (33-36.5) L Red Cell Distribution Width 14.4 % (11.5-14.5) Platelet Count 235 10^3/uL (150-400) Mean Platelet Volume 9.7 fL (7.8-11.0) Neutrophils (%) (Auto) 66.5 % (41.0-85.0) Lymphocytes (%) (Auto) 21.5 % (24.0-44.0) L Monocytes (%) (Auto) 8.8 % (5.0-12.0) Neutrophils # (Auto) 6.6 10^3/uL (1.8-7.7) Lymphocytes # (Auto) 2.14 10^3/uL1 (1.0-4.8) Monocytes # (Auto) 0.9 10^3/uL (0.3-0.8) H Absolute Immature Granulocyte (auto 0.03 10^3 u/L (0-2) Absolute Eosinophils (auto) 0.3 10^3/uL (0.0-0.2) H Immature Granulocytes % 0.30 % (0.00-0.50) Eosinophils % 2.8 % (0.0-5.0) Basophils % 0.1 % (0.0-0.2) Basophils # 0.0 10^3/uL (0.0-0.1) D-Dimer < 0.19 mg/L (0.19-0.49) L Sodium Level 142 mmol/L (132-145) Potassium Level 4.0 mmol/L (3.6-5.2) Chloride Level 105.0 mmol/L (96-109) Carbon Dioxide Level 31.8 mmol/L (20.0-32) Anion Gap 9.2 Blood Urea Nitrogen 9 mg/dL (7-18) Creatinine 0.82 mg/dL (0.59-1.40) Estimated GFR () 90.4 (>/=60) Est GFR (CKD-EPI)(Non-Afr [place]) 74.7 (>/=60) BUN/Creatinine Ratio 10.0 (10.0-20.0) Glucose Level 108 mg/dL (74-106) H Calcium Level 9.5 mg/dL (8.4-10.5) Total Bilirubin 0.6 mg/dL (0.2-1.0) Aspartate Amino Transferase (AST) 13 U/L (0-35) Alanine Aminotransferase (ALT) 21 U/L (12-78) Alkaline Phosphatase 94 U/L (50-136) Total Creatine Kinase 37 U/L (26-192) Creatine Kinase MB 0.6 ng/mL (0.5-3.6) Troponin I High Sensitivity < 4 ng/L (0-50) Pro-B-Type Natriuretic Peptide 29 pg/mL (0-125) Total Protein 7.2 g/dL (6.4-8.2) Albumin 3.4 g/dL (3.4-5.0) Globulin 3.8 Albumin/Globulin Ratio 0.894 Progress Progress Chest x-ray: Normal chest exam, no change from previous study. Glucose 108, rest of chemistries unremarkable. Cardiac enzymes are normal. D- dimer is less than 0.19. CBC is normal. Patient had a cath done a few months ago which was unremarkable. I reviewed her previous records.. She received a breathing treatment and prednisone. Shortness of breath significantly improved and she feels better to go home. ER DEPART Departure Time of Disposition: 19:01 Disposition: 01 HOME / SELF CARE / HOMELESS Impression: Primary Impression: COPD exacerbation Condition: Improved Referrals: MICHAEL GLEASON MD (PCP) PRIMARY CARE PROVIDER Additional Instructions: Albuterol hand-held nebulizer Prednisone Bactrim DS Follow-up with your PCP in 2 to 3 days Return to ED if worsening symptoms or concerns Duration or Time Spent with Pa: 60 min BRANDT ROBLERO MD Jun 09, 2023 17:05
[2023-06-09 17:19] LABS: BASOPHIL % 0.1 % (0.0-0.2); EOSINOPHIL # 0.3 10^3/uL (0.0-0.2); EOSINOPHIL % 2.8 % (0.0-5.0); LYMPHOCYTES # 2.14 10^3/uL1 (1.0-4.8); LYMPHOCYTES % 21.5 % (24.0-44.0); MONOCYTES # 0.9 10^3/uL (0.3-0.8); MONOCYTES % 8.8 % (5.0-12.0); NEUTROPHIL # 6.6 10^3/uL (1.8-7.7); NEUTROPHILS % 66.5 % (41.0-85.0); PLATELET COUNT 235 10^3/uL (150-400); RED CELL DISTRIBUTION WIDTH 14.4 % (11.5-14.5)
[2023-06-09] MEDS ORDERED: DUO 0.5-3(2.5) MG/3 ML IH ONE (17:31)
[2023-06-09] MEDS ORDERED: DECADRON ONE (17:31)
[2023-06-09 17:45] LABS: CARBON DIOXIDE 31.8 mmol/L (20.0-32); GLUCOSE 108 mg/dL (74-106)
[2023-06-09] MEDS ORDERED: PREDNISONE ONE (17:56)
[2023-06-09 18:30] VITALS: BP 132/81
--- NOTE | 2023-06-09 18:52 | DIREP ---
PROCEDURE:CHEST 1 VIEW COMPARISON:[facility], CR, XRAY CHEST SINGLE VW, 03/16/2023, 07:02 PM. INDICATIONS:SOB FINDINGS: LUNGS/PLEURA:No significant pulmonary parenchymal abnormalities. No effusions. No pneumothorax. VASCULATURE:Normal. Unremarkable pulmonary vasculature. CARDIAC:Normal. No cardiac silhouette abnormality or cardiomegaly. MEDIASTINUM:Normal. No visible mass or adenopathy. BONES:Normal. No fracture or visible bony lesion. OTHER:Negative. CONCLUSION:Normal chest examination. No change from previous study. Dictated by: Seun Traecy M.D. on 06/09/2023 at 06:51 PM
[2023-06-09 19:27] VITALS: BP 150/61
== END 2023-06-09 19:32 | disposition home or self-care (01) ==
LOC: ER 16:40
DX: J44.1 Chronic obstructive pulmonary disease with (acute) exacerbation (principal); E11.9 Type 2 diabetes mellitus without complications; I10 Essential (primary) hypertension; Z79.890 Hormone replacement therapy
CPT/HCPCS: 99285; 71045; 80053; 85025; 36415; 85379; 84484; 82553; 83880; 82550; 93005; 94640; J1100; J7512

== ENCOUNTER 2023-07-07 10:31 | Emergency (ER) | payer OTHER ==
[~2023-07-07] VITALS: Ht 170.2 cm; Wt 129.3 kg
[2023-07-07 10:31] VITALS: BP 139/80; PULSE 83; RESP 18; TEMP 98.1; O2SAT 94
[2023-07-07] MEDS ORDERED: SOLU-MEDROL IV STA (10:39)
[2023-07-07] MEDS ORDERED: DUO 0.5-3(2.5) MG/3 ML IH STA (10:39)
--- NOTE | 2023-07-07 10:43 | PCM.EKG ---
[facility] Test Date: 2023-07-07 Test Time: 10:33:35 Pat Name: MYLA KAN Department: ER Room: Gender: Female Call Out Operator: JOHNNIE : 1975 Requested By: BRANDT ROBLERO Order Number: [id number] Reading MD: Brandt ROBLERO Measurements Intervals [place] Rate: 78 P: 25 [place]: 169 QRS: -9 QRSD: 109 T: -12 QT: 451 QTc: 514 Interpretive Statements Sinus rhythm Probable left ventricular hypertrophy Borderline T abnormalities, diffuse leads Prolonged QT interval Compared to ECG 06/09/2023 16:44:05 No significant changes Electronically Signed On 07-10-2023 07:27:24 CDT by Brandt ROBLERO Please click the below link to view image of tracing.
[2023-07-07 10:55] LABS: ABG PCO2 39.9 mmHg (35.0-45.0); ABG PH 7.473 (7.350-7.450); BE(B) 4.7 mmol/L (-2.0-2.0); HCO3act 28.6 mmol/L (22.0-26.0); pO2 77.2 mmHg (80.0-100.0)
[2023-07-07] MEDS ORDERED: DECADRON ONE (11:03)
[2023-07-07] MEDS ORDERED: DUO 0.5-3(2.5) MG/3 ML IH ONE (11:03)
[2023-07-07 11:05] VITALS: PULSE 83; RESP 18; O2SAT 94
--- NOTE | 2023-07-07 11:06 | DIREP ---
PROCEDURE:CHEST 1 VIEW COMPARISON:[facility], CR, XRAY CHEST SINGLE VW, 06/09/2023, 05:05 PM. INDICATIONS:SOB FINDINGS: LUNGS/PLEURA:No confluent pulmonary infiltrate. There is minimally increased conspicuity the of the pulmonary markings in the lung bases and infrahilar regions with comparison to prior. This could suggest basilar atelectasis, vascular congestion or early infiltrates (potentially viral). No effusions. No pneumothorax. CARDIAC:No cardiac silhouette abnormality or cardiomegaly. MEDIASTINUM:No visible mass or adenopathy. BONES:No fracture or visible bony lesion. OTHER:Negative. CONCLUSION:Minimally increase conspicuity the of the pulmonary markings in the lung bases/infrahilar regions. Dictated by: Carly Barnes MD on 07/07/2023 at 11:03 AM
[2023-07-07] MEDS ORDERED: SOLU-MEDROL ONE (11:07)
[2023-07-07] MEDS ORDERED: WATER 20 ML ONE (11:08)
[2023-07-07] MEDS ORDERED: DECADRON IH ONE (11:09)
[2023-07-07 11:10] LABS: BASOPHIL % 0.1 % (0.0-0.2); EOSINOPHIL # 0.3 10^3/uL (0.0-0.2); EOSINOPHIL % 4.9 % (0.0-5.0); LYMPHOCYTES # 1.55 10^3/uL1 (1.0-4.8); LYMPHOCYTES % 22.3 % (24.0-44.0); MONOCYTES # 0.6 10^3/uL (0.3-0.8); MONOCYTES % 8.9 % (5.0-12.0); NEUTROPHIL # 4.4 10^3/uL (1.8-7.7); NEUTROPHILS % 63.5 % (41.0-85.0); RED CELL DISTRIBUTION WIDTH 14.2 % (11.5-14.5)
[2023-07-07 11:35] VITALS: BP 141/106; PULSE 77; RESP 16; O2SAT 92
--- NOTE | 2023-07-07 11:36 | ER.PDOC ---
General Chief Complaint: Requesting Medical Care Stated Complaint: SOB Time seen by MD: 11:00 Source: patient Exam Limitations: no limitations History of Present Illness Initial Comments Shortness of breath this morning. Patient denies cough. No fever or chills. She has COPD and was seen here about a month ago for similar presentation. She took a breathing treatment before coming to the emergency room. Severity: moderate Prior Episodes/Possible Cause: occasional episodes, chronic episodes Modifying Factors: improves with albuterol nebulizer Associated Symptoms: wheezing Prior symptoms/Treatment: Similar symptoms previous, Recenly Seen, Treated by Doctor Allergies: Coded Allergies: No Known Allergies (Unverified , 11/05/22) Home Meds Active Scripts Glimepiride (AMARYL) 4 Mg Tablet, 1 TAB PO BID, #60 TAB 3 Refills Prov:ABRIL GOMEZ MD 09/15/22 Metformin Hcl (METFORMIN HCL) 500 Mg Tablet, 1 TAB PO BID, #60 TAB 3 Refills Prov:ABRIL GOMEZ MD 09/15/22 Reported Medications Potassium Chloride (Potassium Chloride) 20 Meq Tablet.er, 1 TAB PO QD for 30 Days, #30 TAB 0 Refills 11/05/22 Hydroxyzine Hcl (HYDROXYZINE HCL) 10 Mg/5 Ml Syrup, 10 MG PO BID for 30 Days, ML 11/05/22 Propranolol Hcl (PROPRANOLOL HCL) 20 Mg Tablet, 1 TAB PO QD, #60 TAB 2 Refills 11/05/22 Aripiprazole (ABILIFY) 10 Mg Tablet, 1 TAB PO QD for 30 Days, #30 TAB 0 Refills 11/05/22 Aspirin (LOW DOSE ASPIRIN EC) 81 Mg Tablet.dr, 1 TAB PO DAILY, #30 TAB 3 Refills 11/05/22 Albuterol Sulfate (Proair Respiclick) 90 Mcg Aer.pow.ba, 90 MCG IH Q6 for 30 Days, PKG 11/05/22 Albuterol Sulfate (ALBUTEROL SULFATE) 2 Mg/5 Ml Syrup, 5 MILLILITER PO Q6, #150 MILLILITER 11/05/22 Prednisone (PREDNISONE) 20 Mg Tablet, 1 TAB PO BID, #10 TAB 11/05/22 Lisinopril (LISINOPRIL) 5 Mg Tablet, 1 TAB PO DAILY, #30 TAB 5 Refills 09/14/22 Levothyroxine Sodium (LEVOTHYROXINE SODIUM) 100 Mcg Tablet, 1 TAB PO DAILY, #30 TAB 5 Refills 09/14/22 Benztropine Mesylate (BENZTROPINE MESYLATE) 1 Mg Tablet, 1 TAB PO TID, #60 TAB 09/14/22 Atorvastatin 40MG (LIPITOR 40MG) 40 Mg Tablet, 1 TAB PO HS, #90 TAB 1 Refill 09/14/22 Valbenazine Tosylate (Ingrezza) 80 Mg Capsule, 1 CAP PO DAILY24 for 30 Days, #30 CAP 0 Refills 09/14/22 Chlorthalidone (CHLORTHALIDONE) 25 Mg Tablet, 25 MG PO DAILY, TABLET 05/07/14 Amlodipine Besylate (AMLODIPINE BESYLATE) 5 Mg Tablet, 5 MG PO BID, TABLET 05/07/14 Escitalopram Oxalate (ESCITALOPRAM OXALATE) 20 Mg Tablet, 20 MG PO DAILY, #1 TABLET 05/07/14 Past Medical History Medical History: COPD, diabetes, hypertension Surgical History: cardiac cath Family History Significant Family History: no pertinent family hx Social History Smoking: non-smoker Alcohol Use: none Drug Use: none Review of Systems Constitutional: no symptoms reported EENTM: no symptoms reported Physical Exam General Appearance: No Apparent Distress, WD/WN Neck: Non-Tender, Full Range of Motion, Supple, Normal Inspection Respiratory: chest non-tender, no respiratory distress, no accessory muscle use, decreased breath sounds, prolonged expirations, wheezing Cardiovascular: Normal Peripheral Pulses, Regular Rate, Rhythm, No Edema, No Gallop, No JVD, No Murmur Gastrointestinal: Normal Bowel Sounds, No Organomegaly, No Pulsatile Mass, Non Tender, Soft Extremities: Normal Range of Motion, Non-Tender, Normal Inspection, No Pedal Edema, No Calf Tenderness, Normal Capillary Refill 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 (07/07/23 10:39) Blood Culture (07/07/23 10:39) EKG (07/07/23 10:39) Xr Chest 1v (07/07/23 10:39) Troponin I High Sensitivity (07/07/23 10:39) Ipratropium/Albuterol Sulfate (Duo 0.5-3 (07/07/23 10:39) Methylprednisolone Sod Succ (Solu-Medrol (07/07/23 10:39) Dexamethasone Sodium Phosphate (Decadron (07/07/23 11:03) Ipratropium/Albuterol Sulfate (Duo 0.5-3 (07/07/23 11:03) Methylprednisolone Sod Succ (Solu-Medrol (07/07/23 11:07) Water For Injection,Sterile (Water) (07/07/23 11:08) Dexamethasone Sodium Phosphate (Decadron (07/07/23 11:09) Vital Signs Date Time Temp Pulse Resp B/P (MAP) Pulse Ox O2 Delivery O2 Flow Rate FiO2 07/07/23 11:35 77 16 141/106 (118) 92 Nasal Cannula* 2 07/07/23 11:05 83 18 94 Nasal Cannula* 2 07/07/23 10:31 98.1 83 18 07/07/23 10:31 98.1 83 18 139/80 (99) 94 Nasal Cannula* 2 07/07/23 10:31 98.1 83 18 94 Administered Medications Medications (Trade) Dose Ordered Sig/Nisreen Route PRN Reason Start Time Stop Time Status Last Admin Dose Admin Albuterol/ Ipratropium (Duo 0.5-3(2.5) Mg/3 ml) 3 ml STAT STAT IH 07/07/23 10:39 07/07/23 10:43 DC 07/07/23 11:11 3 ML Methylprednisolone Sodium Succinate (Solu-Medrol) 125 mg STAT STAT IV 07/07/23 10:39 07/07/23 10:43 DC 07/07/23 11:10 125 MG Laboratory Tests Test 07/07/23 10:39 07/07/23 10:56 Blood Gas Sample Site RT RADIAL ARTERY Blood pH 7.473 (7.350-7.450) Blood Gas PCO2 39.9 mmHg (35.0-45.0) Blood Gas PO2 77.2 mmHg (80.0-100.0) L Blood Gas HCO3 28.6 mmol/L (22.0-26.0) H Blood Gas Base Excess 4.7 mmol/L (-2.0-2.0) H Andrew Test N/A Arterial Blood Oxygen Saturation 95.8 % (94.0-97.00) Deoxyhemoglobin 4.1 % (0.0-5.0) Carboxyhemoglobin 1.1 % (0.0-3.9) Methemoglobin 0.4 % (0.00-5.0) Total Hemoglobin 16.1 % (12.0-17.8) Total Oxygen Concentration 21.4 % (13.5-17.5) H Blood Gas Temperature 37. Oxygen Delivery Method NASAL CANNULA FiO2 28 % (20-101) Total Carbon Dioxide 29.8 mmol/L (23-27) H White Blood Count 7.0 10^3/uL (4.5-11.0) Red Blood Count 5.18 10^6/uL (4.00-5.20) Hemoglobin 15.0 g/dL (12.0-15.0) Hematocrit 46.1 % (36.0-46.0) H Mean Corpuscular Volume 89.0 fL (78-100) Mean Corpuscular Hemoglobin 29.0 pg (26-34) Mean Corpuscular Hemoglobin Concent 32.5 g/dL (33-36.5) L Red Cell Distribution Width 14.2 % (11.5-14.5) Platelet Count 231 10^3/uL (150-400) Mean Platelet Volume 9.9 fL (7.8-11.0) Neutrophils (%) (Auto) 63.5 % (41.0-85.0) Lymphocytes (%) (Auto) 22.3 % (24.0-44.0) L Monocytes (%) (Auto) 8.9 % (5.0-12.0) Neutrophils # (Auto) 4.4 10^3/uL (1.8-7.7) Lymphocytes # (Auto) 1.55 10^3/uL1 (1.0-4.8) Monocytes # (Auto) 0.6 10^3/uL (0.3-0.8) Absolute Immature Granulocyte (auto 0.02 10^3 u/L (0-2) Absolute Eosinophils (auto) 0.3 10^3/uL (0.0-0.2) H Immature Granulocytes % 0.30 % (0.00-0.50) Eosinophils % 4.9 % (0.0-5.0) Basophils % 0.1 % (0.0-0.2) Basophils # 0.0 10^3/uL (0.0-0.1) Prothrombin Time 11.1 SEC (9.7-11.6) INR 1.1 Activated Partial Thromboplast Time 27.6 SEC (22.5-33.1) D-Dimer 0.47 mg/L (0.19-0.49) Sodium Level 138 mmol/L (132-145) Potassium Level 4.2 mmol/L (3.6-5.2) Chloride Level 104.0 mmol/L (96-109) Carbon Dioxide Level 28.8 mmol/L (20.0-32) Anion Gap 9.4 Blood Urea Nitrogen 11 mg/dL (7-18) Creatinine 0.71 mg/dL (0.59-1.40) Estimated GFR () 106.3 (>/=60) Est GFR (CKD-EPI)(Non-Afr Mongolian) 87.9 (>/=60) BUN/Creatinine Ratio 15.0 (10.0-20.0) Glucose Level 106 mg/dL (74-106) Calcium Level 9.3 mg/dL (8.4-10.5) Total Bilirubin 0.5 mg/dL (0.2-1.0) Aspartate Amino Transferase (AST) 13 U/L (0-35) Alanine Aminotransferase (ALT) 21 U/L (12-78) Alkaline Phosphatase 79 U/L (50-136) Total Creatine Kinase 39 U/L (26-192) Creatine Kinase MB 0.5 ng/mL (0.5-3.6) Troponin I High Sensitivity 5 ng/L (0-50) # Pro-B-Type Natriuretic Peptide 90 pg/mL (0-125) Total Protein 7.1 g/dL (6.4-8.2) Albumin 3.3 g/dL (3.4-5.0) L Globulin 3.8 Albumin/Globulin Ratio 0.868 Progress Progress CXR: Minimally increase conspicuity the of the pulmonary markings in the lung bases/infrahilar regions. Chemistry normal, cardiac enzymes normal, BNP normal, D-dimer normal. CBC no rmal, ABG: pH 7.47 PCO2 39.9 and PO2 77.2. This is on FiO2 of 28% which is patient's baseline. Patient received a breathing treatment with DuoNeb, Decadron and IV Solu-Medrol. She is feeling better and ready to go home. Wheezes resolved and breath sounds are good. EKG/XRAY/CT/US EKG: NSR EKG Comments: HR 78, normal P axis ER DEPART Departure Time of Disposition: 12:33 Disposition: 01 HOME / SELF CARE / HOMELESS Impression: Primary Impression: COPD with acute exacerbation Condition: Improved Referrals: MICHAEL GLEASON MD (PCP) PRIMARY CARE PROVIDER Additional Instructions: Prednisone Z-Guy Continue with breathing treatments at home Follow-up with your PCP in 2 to 3 days Return to ED if worsening symptoms or concerns Duration or Time Spent with Pa: 60 min BRANDT ROBLERO MD Jul 07, 2023 11:36
[2023-07-07 11:58] LABS: CARBON DIOXIDE 28.8 mmol/L (20.0-32)
== END 2023-07-07 12:39 | disposition home or self-care (01) ==
LOC: ER 10:31
DX: J44.1 Chronic obstructive pulmonary disease with (acute) exacerbation (principal); E11.9 Type 2 diabetes mellitus without complications; I10 Essential (primary) hypertension
CPT/HCPCS: 99285; 96374; 71045; 80053; 85025; 36415; 85379; 84484; 87040 ×2; 82553; 83880; 82550; 85610; 85730; 93005; 82803; 36600; 94640; J1100 ×2; J2930; A4216

== ENCOUNTER → 2023-08-13 | Outpatient (CLI) | payer OTHER | END | disposition home or self-care (01) | LOC: RAD 08:22 | PROVIDERS: ATTEND Student in an Organized Health Care Education/Training Program | DX: R16.0 Hepatomegaly, not elsewhere classified (principal); K76.0 Fatty (change of) liver, not elsewhere classified | CPT/HCPCS: 76705; 93976 ==

== ENCOUNTER 2024-01-07 16:51 | Emergency (ER) | payer OTHER ==
[~2024-01-07] VITALS: Ht 170.2 cm; Wt 117.9 kg
[2024-01-07 16:51] VITALS: BP 133/78; PULSE 85; RESP 20; TEMP 98.4; O2SAT 96
[2024-01-07] MEDS: DECADRON IH STA (17:16)
[2024-01-07] MEDS ORDERED: SOLU-MEDROL ONE (17:16)
[2024-01-07] MEDS: SOLU-MEDROL IM STA (17:20)
[2024-01-07] MEDS ORDERED: DUONEB 0.5-3(2.5) MG/3 ML IH ONE (17:24)
[2024-01-07] MEDS ORDERED: DECADRON ONE (17:24)
[2024-01-07] MEDS: DUONEB 0.5-3(2.5) MG/3 ML IH STA (17:30)
[2024-01-07 17:31] VITALS: PULSE 65; RESP 20; O2SAT 96
[2024-01-07 17:32] VITALS: PULSE 67; RESP 20; O2SAT 97
[2024-01-07 17:37] LABS: BASOPHIL % 0.1 % (0.0-0.2); EOSINOPHIL # 0.3 10^3/uL (0.0-0.2); EOSINOPHIL % 2.2 % (0.0-5.0); HEMATOCRIT(ML) 47.5 % (36.0-46.0); HEMOGLOBIN 15.6 g/dL (12.0-15.0); LYMPHOCYTES # 2.23 10^3/uL1 (1.0-4.8); LYMPHOCYTES % 19.1 % (24.0-44.0); MEAN CORP HGB 29.5 pg (26-34); MEAN CORP HGB CONCENTRATION 32.8 g/dL (33-36.5); MONOCYTES % 8.4 % (5.0-12.0); NEUTROPHIL # 8.1 10^3/uL (1.8-7.7); NEUTROPHILS % 69.8 % (41.0-85.0); PLATELET COUNT 255 10^3/uL (150-400); RED BLOOD CELL 5.28 10^6/uL (4.00-5.20); RED CELL DISTRIBUTION WIDTH 13.1 % (11.5-14.5); WHITE BLOOD CELL 11.7 10^3/uL (4.5-11.0)
[2024-01-07 17:40] LABS: +ADD MANUAL DIFF(NO CHRG) NO
[2024-01-07 17:49] VITALS: BP 112/58; PULSE 66; RESP 20; TEMP 98.4; O2SAT 97
[2024-01-07 18:14] LABS: ALBUMIN(ML) 3.1 g/dL (3.4-5.0); ALBUMIN/GLOBULIN RATIO 0.775; ANION GAP 8.6; BUN/CREATININE RATIO 11.11 (10.0-20.0); CALCIUM 9.4 mg/dL (8.4-10.5); CARBON DIOXIDE 33.3 mmol/L (20.0-32); CREATININE SERUM 0.81 mg/dL (0.59-1.40); EST GFR, NON-AA 75.5 (>/=60); POTASSIUM 3.9 mmol/L (3.6-5.2)
[2024-01-07 18:18] VITALS: BP 106/59; PULSE 62; RESP 20; TEMP 98.4; O2SAT 97
== END 2024-01-07 18:40 | disposition home or self-care (01) ==
LOC: ER 16:51
DX: J44.1 Chronic obstructive pulmonary disease with (acute) exacerbation (principal); E07.9 Disorder of thyroid, unspecified; E11.9 Type 2 diabetes mellitus without complications; E78.00 Pure hypercholesterolemia, unspecified; I10 Essential (primary) hypertension
CPT/HCPCS: 99285; 71045; 96372; 80053; 85025; 36415; 85379; 84484; 83880; 93005; 94640; J1100; J2930

== ENCOUNTER → 2024-01-12 | Outpatient (CLI) | payer OTHER | END | disposition home or self-care (01) | LOC: RAD 14:57 | PROVIDERS: ATTEND Nurse Practitioner Family | DX: Z01.818 Encounter for other preprocedural examination (principal); I08.1 Rheumatic disorders of both mitral and tricuspid valves; I10 Essential (primary) hypertension | CPT/HCPCS: 93306 ==

== ENCOUNTER → 2024-03-24 | Outpatient (CLI) | payer OTHER | END | disposition home or self-care (01) | LOC: RAD 16:11 | PROVIDERS: ATTEND Student in an Organized Health Care Education/Training Program | DX: S93.401A Sprain of unspecified ligament of right ankle, initial encounter (principal); M25.471 Effusion, right ankle; M77.31 Calcaneal spur, right foot; M25.771 Osteophyte, right ankle; X58.XXXA Exposure to other specified factors, initial encounter; Y93.89 Activity, other specified; Y92.89 Other specified places as the place of occurrence of the external cause; Y99.8 Other external cause status | CPT/HCPCS: 73610-RT ==